=== PATIENT | female | born 1965 | race Caucasian/White ===

== ENCOUNTER 2016-04-08 19:02 | Inpatient (IN) | payer OTHER ==
[~2016-04-08] VITALS: Ht 160 cm; Wt 98.0 kg
[~2016-04-08 19:02] MED LIST: ADALAT CC60 MG PO; AMOXICILLIN PO; ASPIRIN81 M1 PO; BACTRIM DS 800/1 TAB PO; CATAPRES0.1 MG PO; CIPRO500 M1 PO; CIPRO500 MG PO; CLA PO; COZAAR50 MG PO; GLUCOPHAGE1000 MG PO; GLUCOTROL10 MG PO; HCTZ PO; HYDROCHLOROTHIA PO; LANTUS INS100 UNITS/ SUBQ; LEVAQUIN500 MG PO; LISINOPRIL/HCTZ1 TA2 PO; NIFEDIPINE60 M1 PO; NORCO 5/325 MG1 TAB PO; NORVASC5 MG PO; NOVOLIN N100 U/ML SUBQ; OMEPRAZOLE20 M3 PO; PRAVACHOL20 MG PO; PROBIOTIC FORMU1 CAP PO; ROBAXIN500 M1 PO
[2016-04-08 19:23] VITALS: BP 174/95
--- NOTE | 2016-04-08 19:33 | NUR ---
PT TAKEN TO BED 3
[2016-04-08] MEDS ORDERED: METOPROLOL 25 MG TAB PO ONE (19:40)
[2016-04-08] MEDS ORDERED: ASPIRIN 81 MG TAB.CHEW PO ONE (19:40)
[2016-04-08] MEDS ORDERED: MORPHINE SULFATE 2 MG/ML SYR IVP ONE (19:40)
[2016-04-08] MEDS ORDERED: NACL 0.9% 1,000 ML IV ONE (19:40)
[2016-04-08] MEDS ORDERED: NITROGLYCERIN 2% 1 GM PKT TP ONE (19:40)
--- NOTE | 2016-04-08 20:09 | NUR ---
Dr. Carlin evaluating patient at bedside.
--- NOTE | 2016-04-08 20:14 | NUR ---
X-Ray at bedside.
[2016-04-08] MEDS ORDERED: FUROSEMIDE 40 MG/4 ML VIAL IVP ONE (20:35)
[2016-04-08] MEDS ORDERED: SODIUM POLYSTYRENE 15 GM/60 ML UDBTL PO ONE (20:35)
[2016-04-08] MEDS ORDERED: DEXTROSE 50% 50 ML SYR IVP ONE (20:40)
[2016-04-08] MEDS ORDERED: INSULIN HUMAN REGULAR 100 UNITS/ML 10 ML VIAL IVP ONE (20:40)
[2016-04-08] MEDS ORDERED: LORazepam 2 MG/ML VIAL IVP ONE (22:50)
--- NOTE | 2016-04-08 23:20 | NUR ---
50 Y/O C/O BURNING SHARP INTERMITTENT PAIN X3 DAYS, RADIATES TO LEFT ARM W/ NUMBNESS Hx HTN DM HIGH CHOLESTEROL. O2 SAT 97%, ER MD AWARED OF IT.
--- NOTE | 2016-04-08 23:26 | NUR ---
APatient will be admitted to care of DR RODRIGUEZ. Admited to TELE 111A. Will go to room 111A. Belongings list completed. Report to CHRISTINA PENA .
[2016-04-08] MEDS ORDERED: HYDROcodone/APAP 5/325 MG 1 TAB TAB PO PRN (23:30)
[2016-04-08] MEDS ORDERED: ONDANSETRON 4 MG/2 ML VIAL IVP PRN (23:30)
[2016-04-08] MEDS ORDERED: MORPHINE SULFATE 2 MG/ML SYR IVP PRN (23:30)
[2016-04-08] MEDS ORDERED: ACETAMINOPHEN 325 MG TAB PO PRN (23:30)
--- NOTE | 2016-04-08 23:35 | NUR ---
ADMITTED 50 YEAR OLD FEMALE FROM ER. PT ARRIVED TO UNIT VIA GURNEY. INITIAL ASSESSMENT COMPLETED. PT AAOX4. PT ABLE TO AMBULATE. PT STABLE, DENIES ANY PAIN AT THIS TIME. PT'S VS STABLE, ON ROOM AIR. PT HAS IV TO RIGHT UPPER ARM G 22; ASYMPTOMATIC, PATENT AND INTACT SL. ORIENTED PT TO ROOM AND SURROUNDINGS AND USE OF CALL LIGHT. EXPLAINED PLAN OF CARE TO PT AND PT VERBALIZES UNDERSTANDING. SAFETY MEASURES IN PLACE, ALLERGY BAND ON. MRSA SENT TO LAB. ADMISSION DOCUMENTATION COMPLETES.
[2016-04-08] MEDS ORDERED: INSULIN ASPART SLIDING SCALE 100 UNITS/ML VIAL SUBQ PRN (23:50)
[2016-04-08] MEDS ORDERED: DEXTROSE 50% 50 ML SYR IVP PRN (23:50)
[2016-04-09] VITALS: BP 102/70
--- NOTE | 2016-04-09 00:30 | NUR ---
PROVIDED PT WITH SCDS; HOWEVER, PT STATED THAT SHE WILL WEAR THE SCDS IN THE MORNING BECAUSE SHE WANTS TO SLEEP. CALL LIGHT WITHIN REACH.
--- NOTE | 2016-04-09 02:45 | NUR ---
PT REQUESTED A JELLO, PT STATED THAT SHE WAS A LITTLE HUNGRY. I OFFERED A SANDWICH, BUT PT ONLY WANTED JELLO. CALL LIGHT WITHIN REACH.
[2016-04-09 04:00] VITALS: BP 111/74
--- NOTE | 2016-04-09 05:05 | NUR ---
PT SLEEPING AT THIS TIME, NO SIGNS OF DISTRESS/DISCOMFORT AT THIS TIME. WILL CONTINUE TO MONITOR PT.
--- NOTE | 2016-04-09 07:20 | NUR ---
ENDORSED PT IN STABLE CONDITION TO BECKY ALMARAZ FOR CONTINUITY OF CARE.
--- NOTE | 2016-04-09 07:20 | NUR ---
RECEIVED REPORT FROM NIGHT NURSE. PT IS AAOX4, ON ROOM AIR, IV TO RIGHT UPPER ARM 22G SALINE LOCK PATENT AND INTACT. SKIN INTACT. SCD'S IN PLACE. PT STATES NO CHEST PAIN, INITIAL ASSESSMENT COMPLETED, REVIEWED PLAN OF CARE WITH PT, PT VERBALIZED UNDERSTANDING, ORIENTED PT TO ROOM AND ENVIRONMENT. CALL LIGHT WITHIN REACH. WILL CONTINUE TO MONITOR.
[2016-04-09] MEDS: BLOOD GLUCOSE MONITORING 1 DEV DEV FS SCH ×4 (07:30→20:08)
[2016-04-09 08:00] VITALS: BP 118/53
[2016-04-09] MEDS ORDERED: metFORMIN 500 MG TAB PO SCH (09:00)
[2016-04-09] MEDS: HYDROCHLOROTHIAZIDE 25 MG TAB PO SCH (09:00)
[2016-04-09] MEDS: NIFEdipine 60 MG TABER PO SCH (09:00)
[2016-04-09] MEDS: LISINOPRIL 20 MG TAB PO SCH (09:00)
--- NOTE | 2016-04-09 09:06 | NUR ---
PATIENT HAS BEEN SCREENED AND CATEGORIZED MODERATE NUTRITION RISK. PATIENT WILL BE SEEN WITHIN 3-5 DAYS OF ADMISSION. 04/11/16-04/13/[address]
[2016-04-09] MEDS: ASPIRIN 81 MG TAB.CHEW PO SCH (09:09)
[2016-04-09] MEDS: METHOCARBAMOL 500 MG TAB PO SCH ×3 (09:09→17:00)
[2016-04-09] MEDS: PANTOPRAZOLE 40 MG TABEC PO SCH (09:09)
[2016-04-09] MEDS: glipiZIDE 10 MG TAB PO SCH ×2 (09:10→20:11)
--- NOTE | 2016-04-09 09:11 | NUR ---
DUE MEDICATIONS GIVEN, PT TOLERATED WELL. BP MEDICATIONS NOT GIVEN BP 118/53. WILL CONTINUE TO MONITOR.
--- NOTE | 2016-04-09 11:03 | NUR ---
CM NOTE INITIAL REVIEW FAXED TO [facility]NA / FAX# [phone], C: [phone]
--- NOTE | 2016-04-09 11:45 | NUR ---
CHECKED IN ON PT, PT CURRENTLY RESTING IN BED, PT STATES NO CHEST PAIN OR SOB. CALL LIGHT WITHIN REACH. WILL CONTINUE TO MONITOR.
[2016-04-09 12:00] VITALS: BP 127/68
--- NOTE | 2016-04-09 12:46 | NUR ---
PT REFUSED METHOCARBAMOL AT THIS TIME. NO S/S OF DISTRESS NOTED CALL LIGHT WITHIN REACH. WILL CONTINUE TO MONITOR.
--- NOTE | 2016-04-09 13:53 | NUR ---
CHECKED IN ON PT, PT CURRENTLY RESTING IN BED, PT STATES NO CHEST PAIN OR SOB, CALL LIGHT WITHIN REACH. WILL CONTINUE TO MONITOR
--- NOTE | 2016-04-09 14:58 | NUR ---
PAGED DR.. URIBE REGARDING K LEVEL.
[2016-04-09 16:00] VITALS: BP 113/63
[2016-04-09] MEDS ORDERED: SODIUM POLYSTYRENE 15 GM/60 ML UDBTL PO SCH (16:29)
[2016-04-09] MEDS ORDERED: BLOOD GLUCOSE MONITORING 1 DEV DEV FS SCH (16:30)
[2016-04-09] MEDS ORDERED: INSULIN ASPART SLIDING SCALE 100 UNITS/ML VIAL SUBQ PRN (16:30)
[2016-04-09] MEDS: CALCIUM ACETATE 667 MG TAB PO SCH (17:21)
[2016-04-09] MEDS: NACL 0.9% 1,000 ML IV SCH (17:22)
--- NOTE | 2016-04-09 17:30 | NUR ---
DUE MEDICATIONS GIVEN, CONNECTED PT TO IVF AT 100ML/HR, CALL LIGHT WITHIN REACH. WILL CONTINUE TO MONITOR.
--- NOTE | 2016-04-09 18:25 | NUR ---
CHECKED IN ON PT. ALL NEEDS MET CALL LIGHT WITHIN REACH. WILL CONTINUE TO MONITOR.
--- NOTE | 2016-04-09 19:10 | NUR ---
ENDORSED PLAN OF CARE TO NIGHT NURSE, PT IN STABLE CONDITION.
--- NOTE | 2016-04-09 19:11 | NUR ---
RECEIVED PT IN STABLE CONDITION FROM BECKY RODRIGEZ. NO SOB, NO SIGNS OF DISTRESS. IV SITE TO RT UPPER ARM ASYMPTOMATIC, INTACT, PATENT, IVF RUNNING. PT IS AOX4, AMBULATORY. PT DENIES PAIN AT THIS TIME. SCDS IN PLACE. VS STABLE ON ROOM AIR. SKIN INTACT. PLAN OF CARE DISCUSSED WITH PT. SAFETY MEASURES IN PLACE. CALL LIGHT WITHIN REACH. WILL CONTINUE TO MONITOR.
[2016-04-09 20:00] VITALS: BP 130/76
--- NOTE | 2016-04-09 20:10 | NUR ---
PT TOLERATED DUE MEDS WELL. NO SOB, NO SIGNS OF DISTRESS. IV SITE ASYMPTOMATIC, INTACT, IVF RUNNING. PT DENIES PAIN AT THIS TIME. PLAN OF CARE DISCUSSED WITH PT. SAFETY MEASURES IN PLACE. CLL LIGHT WITHIN REACH. WILL CONTINUE TO MONITOR.
[2016-04-09] MEDS: SACCHAROMYCES 250 MG CAP PO SCH (20:11)
[2016-04-09] MEDS ORDERED: SIMVASTATIN 10 MG TAB PO SCH (21:00)
[2016-04-10] VITALS: BP 126/70
--- NOTE | 2016-04-10 00:31 | NUR ---
VS STABLE ON ROOM AIR. NO SOB, NO SIGNS OF DISTRESS. IV SITE ASYMPTOMATIC, INTACT, IVF RUNNING. PT DENIES PAIN AT THIS TIME. PLAN OF CARE DISCUSSED WITH PT. SAFETY MEASURES IN PLACE. CLL LIGHT WITHIN REACH. WILL CONTINUE TO MONITOR.
--- NOTE | 2016-04-10 02:33 | NUR ---
PT ASLEEP IN BED. NO SOB, NO SIGNS OF DISTRESS. IV SITE ASYMPTOMATIC, INTACT, IVF RUNNING. SAFETY MEASURES IN PLACE. CALL LIGHT WITHIN REACH. WILL CONTINUE TO MONITOR.
[2016-04-10 04:00] VITALS: BP 131/73
--- NOTE | 2016-04-10 04:05 | NUR ---
SPOKE WITH MD MOLINA. MADE AWARE OF US BLE ARTERIAL RESULT OF SIGNIFICANT FLOW LIMITATION AT DISTAL RT POPLITEAL AND LT PROXIMAL POPLITEAL ARTERIES WHICH HAVE WORSENED PROGRESSIVELY SINCE LAST EXAMINATION.
[2016-04-10] MEDS: NACL 0.9% 1,000 ML IV SCH (04:19)
[2016-04-10] MEDS: BLOOD GLUCOSE MONITORING 1 DEV DEV FS SCH (06:29)
--- NOTE | 2016-04-10 07:19 | NUR ---
ENDORSED PT IN STABLE CONDITION TO BECKY RODRIGEZ. ALL NEEDS HAVE BEEN MET AT THIS TIME.
--- NOTE | 2016-04-10 07:19 | NUR ---
RECEIVED REPORT FROM NIGHT NURSE. PT IS AAOX4, ON ROOM AIR, IV TO RIGHT UPPER ARM 22G WITH NS AT 100ML/HR INFUSING WELL. SKIN INTACT. SCD'S IN PLACE. PT CURRENTLY SEATING ON CHAIR. PT STATES NO CHEST PAIN, INITIAL ASSESSMENT COMPLETED, REVIEWED PLAN OF CARE WITH PT, PT VERBALIZED UNDERSTANDING, ORIENTED PT TO ROOM AND ENVIRONMENT. CALL LIGHT WITHIN REACH. WILL CONTINUE TO MONITOR.
[2016-04-10] MEDS ORDERED: glipiZIDE 10 MG TAB PO SCH (07:25)
[2016-04-10 08:00] VITALS: BP 153/76
[2016-04-10] MEDS: PANTOPRAZOLE 40 MG TABEC PO SCH (08:36)
[2016-04-10] MEDS: HYDROCHLOROTHIAZIDE 25 MG TAB PO SCH (08:36)
[2016-04-10] MEDS: ASPIRIN 81 MG TAB.CHEW PO SCH (08:36)
[2016-04-10] MEDS: LISINOPRIL 20 MG TAB PO SCH (08:37)
[2016-04-10] MEDS: SACCHAROMYCES 250 MG CAP PO SCH (08:37)
[2016-04-10] MEDS: NIFEdipine 60 MG TABER PO SCH (08:37)
[2016-04-10] MEDS: METHOCARBAMOL 500 MG TAB PO SCH (08:37)
[2016-04-10] MEDS: CALCIUM ACETATE 667 MG TAB PO SCH (08:37)
--- NOTE | 2016-04-10 08:39 | NUR ---
DUE MEDICATIONS GIVEN, PT REFUSED METHOCARBAMOL, PT CURRENTLY EATING BREAKFAST. CALL LIGHT WITHIN REACH. WILL CONTINUE TO MONITOR.
--- NOTE | 2016-04-10 09:59 | NUR ---
FAXED CONCURRENT REVIEW TO [facility] [phone] PHONE [phone]
[2016-04-10] MEDS ORDERED: LEVAQUIN250 M1 PO (10:06)
[2016-04-10] MEDS ORDERED: FLORASTOR 33 MG1 CAP PO (10:06)
[2016-04-10] MEDS ORDERED: METRONIDAZOLE PO (10:06)
--- NOTE | 2016-04-10 10:35 | NUR ---
CHECKED IN ON PT, PT CURRENTLY RESTING IN BED NO S/S OF RESPIRATORY DISTRESS NOTED, CALL LIGHT WITHIN REACH. WILL CONTINUE TO MONITOR.
--- NOTE | 2016-04-10 11:00 | NUR ---
ALL PAPERWORK SIGNED BY PT, NEW PRESCRIPTION GIVEN, FOLLOW UP APPOINTMENT INFORMATION GIVEN TO PT, IV REMOVED TIP INTACT, ALL ARM BANDS REMOVED. DISCHARGE EDUCATION GIVEN, PT VERBALIZED UNDERSTANDING.
--- NOTE | 2016-04-10 11:30 | NUR ---
PT WAS WALKED OUT TO FRONT LOBBY IN STABLE CONDITION.
[2016-04-10] MEDS ORDERED: NORCO 325 MG-7.1 TAB PO (11:34)
[2016-04-11] MEDS ORDERED: PANTOPRAZOLE 40 MG TABEC PO SCH (06:30)
== END 2016-04-10 11:30 | disposition home or self-care (01) | DRG 243 ==
LOC: MED 19:02 → MTU 23:01
PROVIDERS: ADMIT Student in an Organized Health Care Education/Training Program; ATTEND Student in an Organized Health Care Education/Training Program
DX: K21.9 Gastro-esophageal reflux disease without esophagitis (principal); N17.0 Acute kidney failure with tubular necrosis; E44.0 Moderate protein-calorie malnutrition; E87.1 Hypo-osmolality and hyponatremia; E11.65 Type 2 diabetes mellitus with hyperglycemia; A59.9 Trichomoniasis, unspecified; E87.8 Other disorders of electrolyte and fluid balance, not elsewhere classified; N39.0 Urinary tract infection, site not specified; E83.51 Hypocalcemia; E83.39 Other disorders of phosphorus metabolism; E78.5 Hyperlipidemia, unspecified; D64.9 Anemia, unspecified; E87.5 Hyperkalemia; I10 Essential (primary) hypertension; M54.5 Low back pain; G89.29 Other chronic pain; E78.00 Pure hypercholesterolemia, unspecified; T39.395A Adverse effect of other nonsteroidal anti-inflammatory drugs [NSAID], initial encounter; Z68.38 Body mass index [BMI] 38.0-38.9, adult; Z90.710 Acquired absence of both cervix and uterus; Z79.82 Long term (current) use of aspirin; Z79.1 Long term (current) use of non-steroidal anti-inflammatories (NSAID); Z79.899 Other long term (current) drug therapy; Z88.8 Allergy status to other drugs, medicaments and biological substances; Z83.3 Family history of diabetes mellitus; Z82.49 Family history of ischemic heart disease and other diseases of the circulatory system; Y92.89 Other specified places as the place of occurrence of the external cause

== ENCOUNTER 2016-06-08 21:20 | Emergency (ER) | payer OTHER ==
[~2016-06-08] VITALS: Ht 160 cm; Wt 97.5 kg
[~2016-06-08 21:20] MED LIST changes: +ACET-2863 PO; -ADALAT CC60 MG PO; -AMOXICILLIN PO; +ASPI81CT89 PO; -ASPIRIN81 M1 PO; -BACTRIM DS 800/1 TAB PO; -CATAPRES0.1 MG PO; -CIPRO500 M1 PO; -CIPRO500 MG PO; -CLA PO; -COZAAR50 MG PO; +GLIP10TA3 PO; -GLUCOPHAGE1000 MG PO; -GLUCOTROL10 MG PO; -HCTZ PO; +HYDR-699 PO; -HYDROCHLOROTHIA PO; -LANTUS INS100 UNITS/ SUBQ; +LANTUS SUBQ; -LEVAQUIN500 MG PO; +LEVO250T2 PO; -LISINOPRIL/HCTZ1 TA2 PO; +METF1000 PO; +METH500T14 PO; +NIFE60TE8 PO; -NIFEDIPINE60 M1 PO; -NORCO 5/325 MG1 TAB PO; -NORVASC5 MG PO; -NOVOLIN N100 U/ML SUBQ; +OMEP20TC10 PO; -OMEPRAZOLE20 M3 PO; +PRAV20TA2 PO; -PRAVACHOL20 MG PO; -PROBIOTIC FORMU1 CAP PO; -ROBAXIN500 M1 PO; +SACC250C1 PO; +[UNRECOGNIZED DRUG - CODE] PO
[2016-06-08 21:28] VITALS: BP 160/102
--- NOTE | 2016-06-08 21:53 | NUR ---
PT TAKEN TO BED 7
--- NOTE | 2016-06-08 22:19 | NUR ---
Dr. Izaguirre evaluating patient at bedside.
--- NOTE | 2016-06-08 22:21 | NUR ---
PATIENT PRESENTS TO ED WITH C.O ACCIDENTAL INSULIN OD . PT STATES SHE ACCIDENLY TOOK THE INCORRECT INSULIN . DENIES N/V/D; SKIN IS PINK/WARM/DRY; AAOX4 WITH EVEN AND STEADY GAIT; LUNGS CLEAR BL; HR EVEN AND REGULAR; PT DENIES ANY FEVER, CP, SOB, OR COUGH AT THIS TIME; PATIENT STATES PAIN OF 5/10 AT THIS TIME; VSS; PATIENT POSITIONED FOR COMFORT; HOB ELEVATED; BEDRAILS UP X2; BED DOWN. ER MD MADE AWARE OF PT STATUS.
[2016-06-08 22:24] VITALS: BP 160/102
--- NOTE | 2016-06-08 22:25 | NUR ---
PER DR MOSQUEDA, Patient discharged with v/s stable. Written and verbal after care instructions given and explained. Patient verbalized understanding. Ambulatory with steady gait. All questions addressed prior to discharge. Advised to follow up with PMD. DC NOTE ONLY
== END 2016-06-08 22:25 | disposition home or self-care (01) ==
LOC: MED 21:20
DX: E11.649 Type 2 diabetes mellitus with hypoglycemia without coma (principal); I10 Essential (primary) hypertension; E78.5 Hyperlipidemia, unspecified; Z79.4 Long term (current) use of insulin
CPT/HCPCS: 81002; 81025; 82948; 99283

== ENCOUNTER 2016-07-22 14:20 | Emergency (ER) | payer OTHER ==
[~2016-07-22] VITALS: Ht 160 cm; Wt 99.0 kg
[~2016-07-22 14:20] MED LIST changes: -ACET-2863 PO; +ADALAT CC60 MG PO; +AMOXICILLIN PO; -ASPI81CT89 PO; +ASPIRIN81 M1 PO; +BACTRIM DS 800/1 TAB PO; +CATAPRES0.1 MG PO; +CIPRO500 M1 PO; +CIPRO500 MG PO; +CLA PO; +COZAAR50 MG PO; +FLORASTOR 33 MG1 CAP PO; -GLIP10TA3 PO; +GLUCOPHAGE1000 MG PO; +GLUCOTROL10 MG PO; +HCTZ PO; -HYDR-699 PO; +HYDROCHLOROTHIA PO; +LANTUS INS100 UNITS/ SUBQ; -LANTUS SUBQ; +LEVAQUIN250 M1 PO; +LEVAQUIN500 MG PO; -LEVO250T2 PO; +LISINOPRIL/HCTZ1 TA2 PO; -METF1000 PO; -METH500T14 PO; +METRONIDAZOLE PO; -NIFE60TE8 PO; +NIFEDIPINE60 M1 PO; +NORCO 325 MG-7.1 TAB PO; +NORCO 5/325 MG1 TAB PO; +NORVASC5 MG PO; +NOVOLIN N100 U/ML SUBQ; -OMEP20TC10 PO; +OMEPRAZOLE20 M3 PO; -PRAV20TA2 PO; +PRAVACHOL20 MG PO; +PROBIOTIC FORMU1 CAP PO; +ROBAXIN500 M1 PO; -SACC250C1 PO; -[UNRECOGNIZED DRUG - CODE] PO
[2016-07-22 14:32] VITALS: BP 137/76
--- NOTE | 2016-07-22 15:30 | NUR ---
TRIAGED AND SEEN BY IN TRIAGE. PATIENT LEFT WITHOUT DISCHARGE INSTRUCTIONS.ERMD AWARE
== END 2016-07-22 15:30 | disposition home or self-care (01) ==
LOC: MED 14:20
DX: Z76.0 Encounter for issue of repeat prescription (principal); R05 Cough; E11.9 Type 2 diabetes mellitus without complications; I10 Essential (primary) hypertension; Z88.1 Allergy status to other antibiotic agents

== ENCOUNTER 2016-08-28 00:15 | Emergency (ER) | payer OTHER ==
[~2016-08-28] VITALS: Ht 160 cm; Wt 99.8 kg
[~2016-08-28 00:15] MED LIST changes: +ACET-2863 PO; -ADALAT CC60 MG PO; -AMOXICILLIN PO; +ASPI81CT89 PO; -ASPIRIN81 M1 PO; -BACTRIM DS 800/1 TAB PO; -CATAPRES0.1 MG PO; -CIPRO500 M1 PO; -CIPRO500 MG PO; -CLA PO; -COZAAR50 MG PO; -FLORASTOR 33 MG1 CAP PO; +GLIP10TA3 PO; -GLUCOPHAGE1000 MG PO; -GLUCOTROL10 MG PO; -HCTZ PO; +HYDR-699 PO; -HYDROCHLOROTHIA PO; -LANTUS INS100 UNITS/ SUBQ; +LANTUS SUBQ; -LEVAQUIN250 M1 PO; -LEVAQUIN500 MG PO; +LEVO250T2 PO; -LISINOPRIL/HCTZ1 TA2 PO; +METF1000 PO; +METH500T14 PO; -METRONIDAZOLE PO; +NIFE60TE8 PO; -NIFEDIPINE60 M1 PO; -NORCO 325 MG-7.1 TAB PO; -NORCO 5/325 MG1 TAB PO; -NORVASC5 MG PO; -NOVOLIN N100 U/ML SUBQ; +OMEP20TC10 PO; -OMEPRAZOLE20 M3 PO; +PRAV20TA2 PO; -PRAVACHOL20 MG PO; -PROBIOTIC FORMU1 CAP PO; -ROBAXIN500 M1 PO; +SACC250C1 PO; +[UNRECOGNIZED DRUG - CODE] PO
[2016-08-28 00:31] VITALS: BP 120/74
--- NOTE | 2016-08-28 00:46 | NUR ---
TO ER BED 8
--- NOTE | 2016-08-28 00:52 | NUR ---
PATIENT PRESENTS TO ED WITH LOWER BACK PAIN FOR 4 DAYS, NO TRAUMA NOR INJURY PT DENIES N/V/D; SKIN IS PINK/WARM/DRY; AAOX4 WITH EVEN AND STEADY GAIT; LUNGS CLEAR BL; HR EVEN AND REGULAR; PT DENIES ANY FEVER, CP, SOB, OR COUGH AT THIS TIME; PATIENT STATES PAIN OF 7/10 AT THIS TIME; VSS; PATIENT POSITIONED FOR COMFORT; HOB ELEVATED; BEDRAILS UP X2; BED DOWN. ER MD MADE AWARE OF PT STATUS.
--- NOTE | 2016-08-28 00:59 | NUR ---
Patient being evaluated by physician at bedside.
[2016-08-28] MEDS ORDERED: MORPHINE SULFATE 10 MG/ML SYR IM ONE (01:05)
[2016-08-28 01:16] LABS: EOSINOPHILS # (AUTO) 0.4 K/uL (0-0.4)
[2016-08-28 01:17] LABS: APPEARANCE,URINE CLEAR (CLEAR); BILIRUBIN,URINE NEGATIVE (NEGATIVE); BLOOD, URINE NEGATIVE (NEGATIVE); COLOR,URINE YELLOW (YELLOW); LEUKOCYTE ESTERASE ,URINE NEGATIVE (NEGATIVE); NITRITE, URINE NEGATIVE (NEGATIVE); PROTEIN,URINE NEGATIVE (NEGATIVE); UGLUCOSE NEGATIVE (NEGATIVE); UROBILINOGEN,URINE 0.2 EU/dL (0.2 - 1)
[2016-08-28 01:23] LABS: BASOPHILS # (AUTO) 0.5 K/uL (0.00-0.22); BASOPHILS % (AUTO) 3.7 % (0.0-2.0); EOSINOPHILS % (AUTO) 3.1 % (0.0-4.0); HEMATOCRIT 34.3 % (36-48); LYMPHOCYTES # (AUTO) 4.3 K/uL (2.5-16.5); LYMPHOCYTES % (AUTO) 30.3 % (20.5-51.1); MEAN CORPUSCULAR HEMOGLOBIN 27 pg (27-31); MEAN CORPUSCULAR HGB CONC 32 g/dL (33-37); MEAN CORPUSCULAR VOLUME 85 fL (80-94); MONOCYTES % (AUTO) 6.9 % (1.7-9.3); NEUTROPHILS # (AUTO) 8.1 K/uL (1.8-7.7); PLATELET COUNT (AUTO) 364 K/uL (140-450); RED BLOOD CELL COUNT(AUTO) 4.04 MIL/uL (4.20-5.40); RED CELL DISTRIBUTION WIDTH 13.7 % (11.6-13.7); WHITE BLOOD COUNT (AUTO) 14.3 K/uL (4.8-10.8)
[2016-08-28] MEDS ORDERED: ACETAMINOPHEN EXTRA STRENGTH 500 MG TAB ONE (01:23)
[2016-08-28 01:33] LABS: ALBUMIN 3.3 g/dL (3.4-5.0); ANION GAP 13.4 (8-16); CALCIUM 8.4 mg/dL (8.5-10.1); CARBON DIOXIDE 24.5 mmol/L (21-32); CREATININE 1.4 mg/dL (0.6-1.3); POTASSIUM 4.9 mmol/L (3.5-5.1); TOTAL BILIRUBIN 0.1 mg/dL (0.0-1.0); TOTAL PROTEIN, SERUM 7.7 g/dL (6.4-8.2)
[2016-08-28 01:35] LABS: BACTERIA,URINE FEW /HPF (None Seen); RBC,URINE NONE SEEN /HPF (0-5); SQUAMOUS EPITHELIAL CELL,UR 0-3 /LPF (0-3 (FEW)); WBC,URINE NONE SEEN /HPF (0-5)
[2016-08-28] MEDS ORDERED: ACETAMINOPHEN EXTRA STRENGTH 500 MG TAB PO ONE (01:35)
[2016-08-28 01:54] VITALS: BP 120/74
--- NOTE | 2016-08-28 01:54 | NUR ---
Patient discharged with v/s stable. Written and verbal after care instructions given and explained. Patient verbalized understanding. Ambulatory with steady gait. All questions addressed prior to discharge. Advised to follow up with PMD. DISCHARGED BY DR MOSQUEDA
== END 2016-08-28 01:55 | disposition home or self-care (01) ==
LOC: MED 00:15
DX: S33.5XXA Sprain of ligaments of lumbar spine, initial encounter (principal); E11.9 Type 2 diabetes mellitus without complications; I10 Essential (primary) hypertension; Z88.8 Allergy status to other drugs, medicaments and biological substances; X58.XXXA Exposure to other specified factors, initial encounter; Y93.89 Activity, other specified; Y92.89 Other specified places as the place of occurrence of the external cause; Y99.8 Other external cause status
CPT/HCPCS: 36415; 80053; 81001; 81025; 85025; 99284; J2270

== ENCOUNTER 2016-09-27 21:44 | Inpatient (IN) | payer OTHER ==
[~2016-09-27] VITALS: Ht 160 cm; Wt 95.3 kg
[2016-09-27 22:00] VITALS: BP 127/76
--- NOTE | 2016-09-27 22:37 | NUR ---
50 Y/O F W/C/O CHEST PAIN, AND LOWER BACK PAIN X YESTERDAY. MED HX DM, HTN, AND HIGH CHOLESTEROL. PT DENIES ANY N/V/D,SOB AT THE MOMENT. PT BREATHING IS UNLABORED AND CLEAR BILAT. PT AAOX4.
[2016-09-27] MEDS ORDERED: NITROGLYCERIN 0.4 MG TAB SL ONE (23:05)
[2016-09-27] MEDS ORDERED: ASPIRIN 81 MG TAB.CHEW PO ONE (23:05)
--- NOTE | 2016-09-27 23:11 | NUR ---
X-Ray at bedside.
[2016-09-27 23:36] LABS: BASOPHILS # (AUTO) 0.4 K/uL (0.00-0.22); BASOPHILS % (AUTO) 2.7 % (0.0-2.0); EOSINOPHILS # (AUTO) 0.4 K/uL (0-0.4); EOSINOPHILS % (AUTO) 2.8 % (0.0-4.0); HEMATOCRIT 34.7 % (36-48); HEMOGLOBIN 10.9 g/dL (12.0-16.0); LYMPHOCYTES # (AUTO) 4.2 K/uL (2.5-16.5); LYMPHOCYTES % (AUTO) 31.7 % (20.5-51.1); MEAN CORPUSCULAR HEMOGLOBIN 27 pg (27-31); MEAN CORPUSCULAR HGB CONC 31 g/dL (33-37); MEAN CORPUSCULAR VOLUME 85 fL (80-94); MONOCYTES # (AUTO) 0.9 K/uL (0.8-1.0); MONOCYTES % (AUTO) 6.4 % (1.7-9.3); NEUTROPHILS # (AUTO) 7.4 K/uL (1.8-7.7); NEUTROPHILS % (AUTO) 56.4 % (42.2-75.2); PLATELET COUNT (AUTO) 364 K/uL (140-450); RED BLOOD CELL COUNT(AUTO) 4.09 MIL/uL (4.20-5.40); RED CELL DISTRIBUTION WIDTH 13.2 % (11.6-13.7); WHITE BLOOD COUNT (AUTO) 13.3 K/uL (4.8-10.8)
[2016-09-27 23:44] LABS: ANION GAP 12.8 (8-16); CALCIUM 8.9 mg/dL (8.5-10.1); CARBON DIOXIDE 23.7 mmol/L (21-32); CREATININE 1.5 mg/dL (0.6-1.3)
[2016-09-27 23:46] LABS: POTASSIUM 5.5 mmol/L (3.5-5.1)
[2016-09-27 23:50] LABS: ALBUMIN 3.2 g/dL (3.4-5.0); TOTAL BILIRUBIN 0.1 mg/dL (0.0-1.0); TOTAL PROTEIN, SERUM 7.4 g/dL (6.4-8.2)
[2016-09-27 23:51] LABS: PARTIAL THROMBOPLASTIN TIME 24.8 secs (22-35.6); PROTHROMBIN TIME 9.9 secs (10.8-13.4)
[2016-09-28] MEDS ORDERED: MORPHINE SULFATE 2 MG/ML SYR IVP PRN (01:40)
[2016-09-28] MEDS ORDERED: ONDANSETRON 4 MG/2 ML VIAL IM/IVP PRN (01:40)
[2016-09-28] MEDS ORDERED: ACETAMINOPHEN 325 MG TAB PO PRN (01:40)
[2016-09-28] MEDS ORDERED: DOCUSATE SODIUM 100 MG GELCAP PO PRN (01:40)
[2016-09-28] MEDS ORDERED: HYDROcodone/APAP 7.5/325 MG 1 TAB PO PRN (01:40)
[2016-09-28] MEDS ORDERED: ATORVASTATIN 20 MG TAB PO SCH ×2 (01:45→21:00)
[2016-09-28] MEDS ORDERED: LISINOPRIL 10 MG TAB PO SCH ×2 (01:45→09:00)
[2016-09-28] MEDS ORDERED: LABETALOL 100 MG/20 ML VIAL IVP SCH (01:45)
--- NOTE | 2016-09-28 01:50 | NUR ---
Patient will be admitted to care of DR OFWLER. Admited to TELE 105B. Will go to room 105B. Belongings list completed. Report to MIKE PENA .
[2016-09-28 02:15] VITALS: BP 133/75
--- NOTE | 2016-09-28 02:15 | NUR ---
PATIENT ARRIVED IN THE UNIT ON A GURNEY. PATIENT IS AWAKE, ALERT, AND ORIENTED. NO S/SX OF DISTRESS NOTED. PATIENT ON ROOM AIR. PATIENT DENIES PAIN AT THE MOMENT. PATIENT PLACED ON TELE MONITOR. IV LINE ON LEFT HAND INTACT, ASYMPTOMATIC. BED LOWERED AND CALL LIGHT WITHIN REACH. WILL CONTINUE TO MONITOR.
[2016-09-28] MEDS: NACL 0.9% 1,000 ML IV SCH ×3 (02:22→16:53)
--- NOTE | 2016-09-28 02:30 | NUR ---
PATIENT REFUSED TO TAKE SCHEDULED MEDICATIONS. PATIENT STATES THAT SHE TOOK HER MEDICATIONS AT HOME BEFORE COMING TO THE HOSPITAL. VITAL SIGNS WITHIN NORMAL LIMITS. DR. MARINELLI NOTIFIED.
[2016-09-28 02:42] LABS: CHOL/HDL RATIO 3.8 (1-4.5); FREE T4 (FREE THYROXINE) 0.9 ng/dL (0.76-1.46); MAGNESIUM 2.1 mg/dL (1.8-2.4); PHOSPHORUS 5.2 mg/dL (2.5-4.9); THYROID STIMULATING HORMONE 2.16 uIU/mL (0.34-3.74)
[2016-09-28] MEDS ORDERED: LABETALOL 100 MG/20 ML VIAL ONE (02:48)
[2016-09-28 04:00] VITALS: BP 112/58
--- NOTE | 2016-09-28 04:01 | NUR ---
MADE DR ISAAC AWARE OF PATIENT'S POTASSIUM LEVEL OF 5.5
--- NOTE | 2016-09-28 04:24 | NUR ---
BLOOD SUGAR CHECKED. BLOOD SUGAR 68. DR ISAAC NOTIFIED. PER GIVE PATIENT FOOD. APPLE JUICE AND JELLO GIVEN. WILL REASSESS
[2016-09-28] MEDS ORDERED: INSULIN LISPRO SLIDING SCALE 100 UNITS/ML VIAL SUBQ PRN (04:30)
[2016-09-28] MEDS ORDERED: DEXTROSE 50% 50 ML SYR IVP PRN (04:30)
--- NOTE | 2016-09-28 05:01 | NUR ---
BLOOD SUGAR 111. NO S/S OF DISTRESS NOTED
[2016-09-28] MEDS ORDERED: SODIUM POLYSTYRENE 15 GM/60 ML UDBTL PO PRN (05:40)
[2016-09-28 06:34] LABS: BASOPHILS # (AUTO) 0.4 K/uL (0.00-0.22); BASOPHILS % (AUTO) 3.6 % (0.0-2.0); EOSINOPHILS # (AUTO) 0.3 K/uL (0-0.4); EOSINOPHILS % (AUTO) 2.5 % (0.0-4.0); HEMATOCRIT 31.7 % (36-48); HEMOGLOBIN 10.2 g/dL (12.0-16.0); LYMPHOCYTES # (AUTO) 3.5 K/uL (2.5-16.5); LYMPHOCYTES % (AUTO) 31.9 % (20.5-51.1); MEAN CORPUSCULAR HEMOGLOBIN 27 pg (27-31); MEAN CORPUSCULAR HGB CONC 32 g/dL (33-37); MEAN CORPUSCULAR VOLUME 84 fL (80-94); MONOCYTES # (AUTO) 0.8 K/uL (0.8-1.0); MONOCYTES % (AUTO) 7.1 % (1.7-9.3); NEUTROPHILS # (AUTO) 6.1 K/uL (1.8-7.7); NEUTROPHILS % (AUTO) 54.9 % (42.2-75.2); PLATELET COUNT (AUTO) 323 K/uL (140-450); RED BLOOD CELL COUNT(AUTO) 3.79 MIL/uL (4.20-5.40); RED CELL DISTRIBUTION WIDTH 13.4 % (11.6-13.7); WHITE BLOOD COUNT (AUTO) 11.1 K/uL (4.8-10.8)
--- NOTE | 2016-09-28 06:45 | NUR ---
PATIENT REFUSES TO WEAR SCD. PATIENT IS AMBULATORY
[2016-09-28] MEDS: BLOOD GLUCOSE MONITORING 1 DEV DEV FS SCH ×4 (06:49→20:21)
[2016-09-28 07:02] LABS: PHOSPHORUS 4.6 mg/dL (2.5-4.9)
[2016-09-28 07:04] LABS: ANION GAP 12.4 (8-16); CALCIUM 8.5 mg/dL (8.5-10.1); CARBON DIOXIDE 21.7 mmol/L (21-32); CREATININE 1.3 mg/dL (0.6-1.3); POTASSIUM 5.1 mmol/L (3.5-5.1)
--- NOTE | 2016-09-28 07:27 | NUR ---
PATIENT REPORT GIVEN AT BEDSIDE. PATIENT ENDORSED IN STABLE CONDITION
--- NOTE | 2016-09-28 07:35 | NUR ---
REPORT RECIEVED FROM CHIEF GUARD, PT AAOX4, RESTING QUIETLY IN NAD, RESP EVEN UNLABORED, SKIN WARM DRY COLOR WNL, INITIAL ASSESSMENT DONE, POC REVIEWED, PT DENIES PAIN OR DISCOMFORT, PT DRINKING APPLE JUICE, WILL RECHECK BS, CALL BOND WITHIN REACH, BED LOCKED IN LOW POSITION, SIDE RAILS UP, WILL CONTINUE TO MONITOR.
[2016-09-28 08:00] VITALS: BP 132/71
[2016-09-28] MEDS: metFORMIN 500 MG TAB PO SCH ×2 (08:00→16:52)
--- NOTE | 2016-09-28 08:30 | NUR ---
US AT BEDSIDE
[2016-09-28] MEDS: ECOTRIN 81 MG TABEC PO SCH (08:59)
[2016-09-28] MEDS: PANTOPRAZOLE 40 MG TABEC PO SCH ×2 (08:59→20:17)
--- NOTE | 2016-09-28 09:18 | NUR ---
CM NOTE INITIAL REVIEW FAXED TO [facility] [phone] ADAN EXT [phone]
--- NOTE | 2016-09-28 09:36 | NUR ---
PT RESTING QUIETLY IN NAD, DENIES PAIN OR DISCOMFORT, NEW IV BAG HANG, IV SITE CLEAR, CALL BOND WITHIN REACH WILL CONTINUE TO MONITOR.
--- NOTE | 2016-09-28 11:13 | NUR ---
PT UP OUT OF BED WITHOUT PROBLEM, AMBULATES TO BATHROOM WITH STEADY GAIT, CLEAN CATCH URINE COLLECTED, SENT TO LAB, PT DENIES N/V, DENIES PAIN OR DISCOMFORT, REMAINS ON NUTRITION TECHNICIAN, WILL CONTINUE TO MONITOR.
[2016-09-28 12:00] VITALS: BP 128/73
[2016-09-28 12:13] LABS: AMPHETAMINE, URINE NEG. ng/ml (NEG <=1000); BARBITURATE, URINE NEG. ng/ml (NEG <=200); BENZODIAZEPINE, URINE NEG. ng/mL (NEG <=200); CANNABINOID, URINE NEG. ng/mL (NEG <=50); COCAINE, URINE NEG. ng/mL (NEG <=300); OPIATE, URINE NEG. ng/mL (NEG <=2000); PHENCYCLIDINE SCREEN,URINE NEG. ng/mL (NEG <=25)
--- NOTE | 2016-09-28 12:20 | NUR ---
DR BRIONES TO BEDSIDE FOR EVAL
[2016-09-28 13:38] LABS: APPEARANCE,URINE CLEAR (CLEAR); BILIRUBIN,URINE NEGATIVE (NEGATIVE); BLOOD, URINE NEGATIVE (NEGATIVE); COLOR,URINE YELLOW (YELLOW); LEUKOCYTE ESTERASE ,URINE TRACE (NEGATIVE); NITRITE, URINE NEGATIVE (NEGATIVE); PH,URINE 6.5 (5.0-9.0); PROTEIN,URINE NEGATIVE (NEGATIVE); UGLUCOSE NEGATIVE (NEGATIVE); UROBILINOGEN,URINE 0.2 EU/dL (0.2 - 1)
[2016-09-28 13:54] LABS: RBC,URINE 0-2 /HPF (0-5)
[2016-09-28 13:55] LABS: BACTERIA,URINE 1+ /HPF (None Seen); MUCUS,URINE 1+ /LPF (None Seen)
--- NOTE | 2016-09-28 15:26 | NUR ---
COLACE GIVEN REQUESTED BY PT, PT STATES SHE HAS NOT HAD BM IN 3DAYS, AND HAS CHRONIC ISSUES WITH CONSTIPATION, PRUNE JUICE, DR YIP NOTIFIED OF PT REQUESTS FOR SUPPOSITORY, AND MADE AWARE OF UA RESULTS.
[2016-09-28 16:00] VITALS: BP 140/74
[2016-09-28] MEDS: METHOCARBAMOL 500 MG TAB PO SCH (17:00)
[2016-09-28] MEDS ORDERED: GLYCERIN ADULT 1 SUPP RC PRN ×2 (17:00→17:31)
--- NOTE | 2016-09-28 17:57 | NUR ---
PT REFUSED ROBAXIN, PT STATES I DON'T WANT ANY MUSCLE RELAXANT RIGHT NOW, PT DENIES PAIN OR DISCOMFORT, PT GETS UP OUT OF BED WITHOUT PROBLEM, AMBULATES DOWN THE HALLWAY WITH STEADY GAIT, GLYCERIN SUPPOSITORY GIVEN AT THIS TIME, WILL CONTINUE TO MONTIOR.
--- NOTE | 2016-09-28 18:38 | NUR ---
PT REPORTS + BM AFTER SUPPOSITORY. PT DENIES CHEST PAIN OR DISCOMFORT, PT REMAINS ON ENDOSCOPE TECHNICIAN, IVF CONTINUES WITH IV SITE WNL, CALL BOND WITHIN REACH, SIDE RAILS UP, WILL CONTINUE TO MONTOR.
--- NOTE | 2016-09-28 19:19 | NUR ---
REPORT GIVEN TO CLIENT RENEWAL SPECIALIST NURSE MANDEEP, PT STABLE CONDITION.
--- NOTE | 2016-09-28 19:20 | NUR ---
RECEIVED REPORTS FROM DAY RN, PATIENT RESTING IN BED, FAMILY MEMBERS AT BEDSIDE. PATIENT AWAKE ALERT ORIENTED X4. NO S/S OF ACUTE DISTRESS NOTED, DENIES PAIN AT THIS TIME. IV PATENT AND INTACT, INFUSING NS WELL. PLAN OF CARE DISCUSSED, VERBALIZED UNDERSTANDING. CALL LIGHT WITHIN REACH, BED AT LOWEST POSITION, SIDE RAILS UP X2, WILL CONTINUE TO MONITOR.
[2016-09-28 20:00] VITALS: BP 130/68
--- NOTE | 2016-09-28 20:20 | NUR ---
PM MEDICATION GIVEN, PATIENT TOLERATED WELL.
[2016-09-28] MEDS ORDERED: SACCHAROMYCES BOULARDII PO SCH (21:00)
[2016-09-28] MEDS ORDERED: SIMVASTATIN 10 MG TAB PO SCH (21:00)
[2016-09-28] MEDS ORDERED: NON-FORMULARY ITEM (Pravastatin Sodium* (Pravachol*) 20 MG) PO SCH (21:00)
[2016-09-28] MEDS ORDERED: NON-FORMULARY ITEM (Omeprazole 20 MG) PO SCH (21:00)
--- NOTE | 2016-09-28 22:30 | NUR ---
PATIENT SLEEPING IN BED, NO S/S OF ACUTE DISTRESS NOTED, RESPIRATION EVEN AND UNLABORED. CALL LIGHT WITHIN REACH, SAFETY MEASURE ENSURED, WILL CONTINUE TO MONITOR.
[2016-09-29] VITALS: BP 131/70
--- NOTE | 2016-09-29 01:45 | NUR ---
PATIENT STATED PAIN ON HER LEGS 3/10. TYLENOL GIVEN ORDERED. NO S/S OF ACUTE DISTRESS NOTED, WILL CONTINUE TO MONITOR.
--- NOTE | 2016-09-29 03:50 | NUR ---
PATIENT SLEEPING IN BED, NO S/S OF ACUTE DISTRESS NOTED, RESPIRATION EVEN AND UNLABORED. CALL LIGHT WITHIN REACH, SAFETY MEASURE ENSURED, WILL CONTINUE TO MONITOR.
[2016-09-29 04:00] VITALS: BP 146/90
[2016-09-29] MEDS: BLOOD GLUCOSE MONITORING 1 DEV DEV FS SCH ×2 (06:50→12:23)
--- NOTE | 2016-09-29 06:52 | NUR ---
BS 102. PATIENT RESTING IN BED, NO S/S OF ACUTE DISTRESS NOTED, CALL LIGHT WITHIN REACH, SAFETY MEASURE ENSURED, WILL CONTINUE TO MONITOR.
[2016-09-29 07:14] LABS: ANION GAP 11.5 (8-16); CALCIUM 8.8 mg/dL (8.5-10.1); CARBON DIOXIDE 23.6 mmol/L (21-32); HEMATOCRIT 32.9 % (36-48); HEMOGLOBIN 10.8 g/dL (12.0-16.0); MEAN CORPUSCULAR HEMOGLOBIN 27 pg (27-31); MEAN CORPUSCULAR HGB CONC 33 g/dL (33-37); MEAN CORPUSCULAR VOLUME 83 fL (80-94); PLATELET COUNT (AUTO) 321 K/uL (140-450); POTASSIUM 5.1 mmol/L (3.5-5.1); RED BLOOD CELL COUNT(AUTO) 3.94 MIL/uL (4.20-5.40); RED CELL DISTRIBUTION WIDTH 13.3 % (11.6-13.7); WHITE BLOOD COUNT (AUTO) 9.1 K/uL (4.8-10.8)
[2016-09-29] MEDS ORDERED: glipiZIDE 10 MG TAB PO SCH (07:30)
--- NOTE | 2016-09-29 07:30 | NUR ---
REPORT RECEIVED FROM COOK HELPER FRUIT, PT RESTING QUIETLY IN NAD, RES EVEN UNLABORED SKIN WARM DRY COLOR WNL, AAOX4, PT DENIES CHEST PAIN OR SOB, SPEAKS CLEARLY, PLAN OF CARE REVIEWED, PT VERBALIZED FULL UNDERSTANDING, DENIES ANY IMMEDIATE NEEDS, CALL BOND WITHIN REACH, WILL CONTINUE TO MONITOR.
--- NOTE | 2016-09-29 07:35 | NUR ---
ENDORSED PLAN OF CARE TO DAY RN, PATIENT IS IN STABLE CONDITION. RESPIRATION EVEN AND UNLABORED, AWAKE ALERT ORIENTEDX4.
--- NOTE | 2016-09-29 07:54 | NUR ---
PATIENT HAS BEEN SCREENED AND CATEGORIZED MODERATE RISK. PATIENT WILL BE SEEN WITHIN 3-5 DAYS OF ADMISSION. 10/01/16 TO 10/03/[address]
[2016-09-29 08:00] VITALS: BP 144/89
[2016-09-29] MEDS ORDERED: metFORMIN 500 MG TAB PO SCH (08:00)
[2016-09-29] MEDS: ECOTRIN 81 MG TABEC PO SCH (08:05)
[2016-09-29] MEDS: PANTOPRAZOLE 40 MG TABEC PO SCH (08:06)
[2016-09-29 08:10] LABS: T4 (THYROXINE) 6.8 ug/dL (4.5-12.0)
[2016-09-29] MEDS: METHOCARBAMOL 500 MG TAB PO SCH (08:16)
--- NOTE | 2016-09-29 08:16 | NUR ---
DUE MEDS GIVEN AT THIS TIME EXCEPT FOR ROBAXIN, PT REFUSED ROBAXIN, PT STATES SHE NORMALLY TAKES IT AT NIGHT TIME, PT NOW EATING BREAKFAST, DENIES PAIN OR DISCOMFORT, CALL BOND WITHIN REACH, WILL CONTINUE TO MONITOR.
[2016-09-29 08:56] LABS: EOSINOPHILS % (MANUAL) 4 % (0-4); LYMPHOCYTES % (MANUAL) 33 % (20-46); MONOCYTES % (MANUAL) 8 % (5-12); NEUTROPHILS % (MANUAL) 55 (43-65)
[2016-09-29 08:57] LABS: PLATELET ESTIMATE ADEQUATE
[2016-09-29] MEDS ORDERED: LACTOBACILLUS RHAMNOSUS GG 1 EACH CAP PO SCH (09:00)
[2016-09-29] MEDS ORDERED: NIFEdipine 60 MG TABER PO SCH (09:00)
[2016-09-29] MEDS ORDERED: HYDROCHLOROTHIAZIDE 25 MG TAB PO SCH (09:00)
[2016-09-29] MEDS ORDERED: LISINOPR PO SCH (09:00)
[2016-09-29] MEDS ORDERED: ASPIRIN 81 MG TAB.CHEW PO SCH (09:00)
[2016-09-29] MEDS ORDERED: HYDROCHLOROTHIAZIDE PO SCH (09:00)
[2016-09-29] MEDS ORDERED: LISINOPRIL 20 MG TAB PO SCH (09:00)
--- NOTE | 2016-09-29 11:08 | NUR ---
PT RESTING COMFORTABLY IN NAD, RESP EVEN UNLABORED, PT DENIES ANY IMMEDIATE NEEDS, WILL CONTINUE TO MONITOR.
[2016-09-29 11:32] LABS: HEMOGLOBIN A1C 7.2 % (4.8-5.6)
[2016-09-29 12:00] VITALS: BP 133/74
--- NOTE | 2016-09-29 12:21 | NUR ---
PT C/O NAUSEA, OFFERED ZOFRAN BUT PT DECLINED, PT STATES SHE JUST WANTS "CRACKERS", VSS, DENIES PAIN OR DISCOMFORT, WILL CONTINUE TO MONITOR.
--- NOTE | 2016-09-29 12:25 | NUR ---
REPORT GIVEN TO BECKY MURILLO, PT CARE RELINQUISHED AT THIS TIME.
--- NOTE | 2016-09-29 13:21 | NUR ---
PT CLEARED FOR DISCHARGED. DISCHARGE INSTRUCTIONS PROVIDED. PT VERBALIZED UNDERSTANDING. IV TAKEN OUT TIP INTACT. PT REFUSED PNA VACCINE. EDUCATION PROVIDED. PT REFUSED DUE TO FEAR OF GETTING SICK. NO S/S OF ACUTE DISTRESS. PT DENIES PAIN. PT TAKEN TO LOBBY. PT REMAINS STABLE.
== END 2016-09-29 13:21 | disposition home or self-care (01) | DRG 243 ==
LOC: MED 21:44 → MTU 09-28 01:44
PROVIDERS: ADMIT Family Medicine; ATTEND Family Medicine
DX: K21.9 Gastro-esophageal reflux disease without esophagitis (principal); N17.0 Acute kidney failure with tubular necrosis; E11.22 Type 2 diabetes mellitus with diabetic chronic kidney disease; D68.59 Other primary thrombophilia; E11.51 Type 2 diabetes mellitus with diabetic peripheral angiopathy without gangrene; E44.0 Moderate protein-calorie malnutrition; N18.3 Chronic kidney disease, stage 3 (moderate); I25.119 Atherosclerotic heart disease of native coronary artery with unspecified angina pectoris; I12.9 Hypertensive chronic kidney disease with stage 1 through stage 4 chronic kidney disease, or unspecified chronic kidney disease; E83.39 Other disorders of phosphorus metabolism; E87.5 Hyperkalemia; E87.8 Other disorders of electrolyte and fluid balance, not elsewhere classified; E78.00 Pure hypercholesterolemia, unspecified; E66.9 Obesity, unspecified; D64.9 Anemia, unspecified; E78.5 Hyperlipidemia, unspecified; Z88.8 Allergy status to other drugs, medicaments and biological substances; Z79.2 Long term (current) use of antibiotics; Z79.899 Other long term (current) drug therapy; Z79.4 Long term (current) use of insulin; Z83.3 Family history of diabetes mellitus; Z82.49 Family history of ischemic heart disease and other diseases of the circulatory system; Z68.37 Body mass index [BMI] 37.0-37.9, adult
CPT/HCPCS: 36415; 71010; 80048; 80053; 80305; 81001; 82150; 82607; 82728; 82746; 82948; 83036; 83540; 83690; 83735; 83880; 84100; 84436; 84439; 84443; 84479; 84484; 85025; 85045; 85610; 85730; 87081; 87086; 93005; 93925; 93970; 99285; J1815; J3490; J7030; Q0092

== ENCOUNTER 2017-08-09 13:43 | Emergency (ER) | payer OTHER ==
[~2017-08-09] VITALS: Ht 160 cm; Wt 104.3 kg
[~2017-08-09 13:43] MED LIST changes: +METR250T8 PO; -[UNRECOGNIZED DRUG - CODE] PO
[2017-08-09 13:58] VITALS: BP 156/88
[2017-08-09] MEDS ORDERED: HYDROcodone/APAP 10/325 MG 1 TAB TAB PO STA (17:49)
[2017-08-09] MEDS ORDERED: CEPHALEXIN 500 MG CAP PO ONE (17:50)
[2017-08-09 18:56] VITALS: BP 115/76
== END 2017-08-09 18:56 | disposition home or self-care (01) ==
LOC: MED 13:43
DX: N39.0 Urinary tract infection, site not specified (principal); G89.29 Other chronic pain; M54.9 Dorsalgia, unspecified; F11.20 Opioid dependence, uncomplicated; E11.9 Type 2 diabetes mellitus without complications; I10 Essential (primary) hypertension; Z90.710 Acquired absence of both cervix and uterus; Z79.82 Long term (current) use of aspirin; Z79.899 Other long term (current) drug therapy; Z79.84 Long term (current) use of oral hypoglycemic drugs; Z88.8 Allergy status to other drugs, medicaments and biological substances
CPT/HCPCS: 87086; 87186; 99283; 99284

== ENCOUNTER 2017-08-23 00:20 | Emergency (ER) | payer OTHER ==
[~2017-08-23] VITALS: Ht 160 cm; Wt 106.6 kg
[2017-08-23 00:39] VITALS: BP 157/85
--- NOTE | 2017-08-23 00:42 | NUR ---
PT COMES IN TO THE ER WITH C/O OF PAIN TO THE BACK. RADIATES TO THE MIDDLE OF BACK. PT STATES THAT SHE HAS HAD A UTI 10 DAYS AGO AND WAS TREATED, SHE STILL FELT SICK AFTER AND SATURDAY WENT TO THE DOCTOR AND RECIEVED MEDICINE, BACTRIN, BUT STILL IN SEVERE PAIN. PT HAD N/V TODAY. LUNG SOUNDS CLEAR BILATERAL. FAMILY AT BEDSIDE.A/O X 4. SKIN IS PINK/WARM/DRY; EVEN AND STEADY GAIT; HR EVEN AND REGULAR; PT DENIES ANY FEVER, CP, SOB, OR COUGH AT THIS TIME; PATIENT STATES PAIN OF 7/10 AT THIS TIME; VSS; PATIENT POSITIONED FOR COMFORT; HOB ELEVATED; BEDRAILS UP X2; BED DOWN. ER MD MADE AWARE OF PT STATUS.
--- NOTE | 2017-08-23 00:42 | NUR ---
TO LOBBY A/W BED, ANUPAM EUGENE NOTED
--- NOTE | 2017-08-23 01:35 | NUR ---
DR BUCKNER AT BEDSIDE EVALUATING PT.
[2017-08-23] MEDS ORDERED: LORazepam 1 MG TAB PO ONE (02:05)
[2017-08-23] MEDS ORDERED: HYDROcodone/APAP 10/325 MG 1 TAB TAB PO STA (02:05)
--- NOTE | 2017-08-23 02:19 | NUR ---
lab at bedside
[2017-08-23 02:28] LABS: APPEARANCE,URINE CLEAR (CLEAR); BILIRUBIN,URINE NEGATIVE (NEGATIVE); BLOOD, URINE NEGATIVE (NEGATIVE); COLOR,URINE YELLOW (YELLOW); LEUKOCYTE ESTERASE ,URINE NEGATIVE (NEGATIVE); NITRITE, URINE NEGATIVE (NEGATIVE); PH,URINE 5.5 (5.0-9.0); UGLUCOSE NEGATIVE (NEGATIVE)
[2017-08-23 02:40] LABS: ANION GAP 14.6 (8-16); CARBON DIOXIDE 23.9 mmol/L (21-32)
--- NOTE | 2017-08-23 02:45 | NUR ---
pt resting in bed, family at bedside. stable
[2017-08-23 02:46] LABS: ALBUMIN 3.3 g/dL (3.4-5.0); TOTAL BILIRUBIN 0.1 mg/dL (0.0-1.0)
[2017-08-23 02:49] LABS: POTASSIUM 5.5 mmol/L (3.5-5.1)
[2017-08-23 03:22] LABS: BASOPHILS % (AUTO) 0.2 % (0.0-2.0); EOSINOPHILS # (AUTO) 0.2 K/uL (0-0.4); HEMATOCRIT 31.3 % (36-48); LYMPHOCYTES # (AUTO) 3.1 K/uL (2.5-16.5); MEAN CORPUSCULAR HEMOGLOBIN 26 pg (27-31); MEAN CORPUSCULAR HGB CONC 32 g/dL (33-37); MONOCYTES % (AUTO) 8.5 % (1.7-9.3); NEUTROPHILS # (AUTO) 7.6 K/uL (1.8-7.7); NEUTROPHILS % (AUTO) 63.3 % (42.2-75.2); PLATELET COUNT (AUTO) 343 K/uL (140-450); RED BLOOD CELL COUNT(AUTO) 3.78 MIL/uL (4.20-5.40); RED CELL DISTRIBUTION WIDTH 14.6 % (11.6-13.7)
[2017-08-23 03:40] VITALS: BP 133/74
--- NOTE | 2017-08-23 03:40 | NUR ---
Patient discharged with v/s stable. Written and verbal after care instructions given and explained. Patient alert, oriented and verbalized understanding of instructions. Ambulatory with steady gait. All questions addressed prior to discharge. ID band removed. Patient advised to follow up with PMD. Rx of norco, flexeril were given. Patient educated on indication of medication including possible reaction and side effects. Opportunity to ask questions provided and answered.
== END 2017-08-23 03:40 | disposition home or self-care (01) ==
LOC: MED 00:20
DX: M54.5 Low back pain (principal); E66.01 Morbid (severe) obesity due to excess calories; I12.9 Hypertensive chronic kidney disease with stage 1 through stage 4 chronic kidney disease, or unspecified chronic kidney disease; E11.22 Type 2 diabetes mellitus with diabetic chronic kidney disease; N18.9 Chronic kidney disease, unspecified; Z79.84 Long term (current) use of oral hypoglycemic drugs; Z79.82 Long term (current) use of aspirin; Z79.899 Other long term (current) drug therapy; Z88.8 Allergy status to other drugs, medicaments and biological substances
CPT/HCPCS: 36415; 80053; 81003; 81025; 85025; 99284

== ENCOUNTER 2017-08-25 22:59 | Emergency (ER) | payer OTHER ==
[~2017-08-25] VITALS: Ht 160 cm; Wt 106.6 kg
[2017-08-25 23:07] VITALS: BP 179/76
[2017-08-25] MEDS ORDERED: LORazepam 2 MG/ML VIAL IM ONE ×2 (23:15→23:50)
[2017-08-26 00:55] VITALS: BP 143/73
== END 2017-08-26 00:55 | disposition home or self-care (01) ==
LOC: MED 22:59
DX: R06.4 Hyperventilation (principal); F41.0 Panic disorder [episodic paroxysmal anxiety]; R94.31 Abnormal electrocardiogram [ECG] [EKG]; E78.5 Hyperlipidemia, unspecified; E11.9 Type 2 diabetes mellitus without complications; I10 Essential (primary) hypertension; Z79.899 Other long term (current) drug therapy; Z79.84 Long term (current) use of oral hypoglycemic drugs; Z88.8 Allergy status to other drugs, medicaments and biological substances
CPT/HCPCS: 93005; 96372; 99283; J2060

== ENCOUNTER 2017-11-06 00:14 | Emergency (ER) | payer OTHER ==
[~2017-11-06] VITALS: Ht 160 cm; Wt 106.2 kg
[2017-11-06 00:34] VITALS: BP 152/80
--- NOTE | 2017-11-06 00:34 | NUR ---
PT PRESENTS TO ED WITH EPIGASTRIC CHEST PAIN AND SOB X3 DAYS. PT STASTES WAKING UP FEELING BURNING IN HER CHEST WITH SOB AND WORRIED. PT VSS. LUNGS CLEAR. HEART SOUNDS EVEN AND REGULAR. LUNGS CLEAR BILAT. O2SAT 97% AT RA. POSITIONED IN BED WITH HOB ELEVATED. SIDE RAILES UP. VSS. ER MD AWARE. CONTINUE TO MONITOR.
--- NOTE | 2017-11-06 00:34 | NUR ---
TO BED # 5 AMBULATORY , REPORT GIVEN TO GRUPO PENA
[2017-11-06] MEDS ORDERED: ASPIRIN 325 MG TAB PO ONE (00:40)
[2017-11-06] MEDS ORDERED: DICYCLOMINE HCL LIQUID 20 MG, ALUMINUM HYD/MAG/SIMETHICONE 30 ML, LIDOCAINE VISCOUS 2% ... PO ONE ×3 (00:55)
[2017-11-06 01:10] LABS: BASOPHILS # (AUTO) 0.1 K/uL (0.00-0.22); BASOPHILS % (AUTO) 0.4 % (0.0-2.0); EOSINOPHILS # (AUTO) 0.3 K/uL (0-0.4); EOSINOPHILS % (AUTO) 2.4 % (0.0-4.0); HEMOGLOBIN 11.7 g/dL (12.0-16.0); LYMPHOCYTES # (AUTO) 4.7 K/uL (2.5-16.5); MEAN CORPUSCULAR HEMOGLOBIN 27 pg (27-31); MEAN CORPUSCULAR HGB CONC 32 g/dL (33-37); MEAN CORPUSCULAR VOLUME 83.6 fL (80-94); MONOCYTES % (AUTO) 7.2 % (1.7-9.3); NEUTROPHILS # (AUTO) 7.7 K/uL (1.8-7.7); PLATELET COUNT (AUTO) 338 K/uL (140-450); RED BLOOD CELL COUNT(AUTO) 4.42 MIL/uL (4.20-5.40); RED CELL DISTRIBUTION WIDTH 14.5 % (11.6-13.7); WHITE BLOOD COUNT (AUTO) 13.8 K/uL (4.8-10.8)
[2017-11-06 01:19] LABS: ANION GAP 11.7 (8-16); CARBON DIOXIDE 27.8 mmol/L (21-32); CREATININE 1.2 mg/dL (0.6-1.3); POTASSIUM 3.5 mmol/L (3.5-5.1)
[2017-11-06 01:25] LABS: ALBUMIN 3.5 g/dL (3.4-5.0); TOTAL BILIRUBIN 0.1 mg/dL (0.0-1.0)
[2017-11-06 01:39] LABS: BARBITURATE, URINE NEG. ng/ml (NEG <=200); BENZODIAZEPINE, URINE NEG. ng/mL (NEG <=200); CANNABINOID, URINE NEG. ng/mL (NEG <=50); COCAINE, URINE NEG. ng/mL (NEG <=300); OPIATE, URINE NEG. ng/mL (NEG <=2000); PHENCYCLIDINE SCREEN,URINE NEG. ng/mL (NEG <=25)
[2017-11-06 01:43] LABS: APPEARANCE,URINE CLEAR (CLEAR); BILIRUBIN,URINE NEGATIVE (NEGATIVE); BLOOD, URINE TRACE-L (NEGATIVE); COLOR,URINE YELLOW (YELLOW); LEUKOCYTE ESTERASE ,URINE NEGATIVE (NEGATIVE); NITRITE, URINE NEGATIVE (NEGATIVE); UGLUCOSE NEGATIVE (NEGATIVE)
[2017-11-06] MEDS ORDERED: MORPHINE SULFATE 4 MG/ML SYR IM ONE (01:55)
[2017-11-06 02:02] LABS: RBC,URINE 0-5 (RARE) /HPF (0-5); WBC,URINE 0-5 (RARE) /HPF (0-5)
[2017-11-06 03:32] VITALS: BP 132/76
--- NOTE | 2017-11-06 03:32 | NUR ---
Patient discharged with v/s stable. Written and verbal after care instructions given and explained. Patient alert, oriented and verbalized understanding of instructions. Ambulatory with steady gait. All questions addressed prior to discharge. ID band removed. Patient advised to follow up with PMD. Rx of Azithromycin given. Patient educated on indication of medication including possible reaction and side effects. Opportunity to ask questions provided and answered.
== END 2017-11-06 03:32 | disposition home or self-care (01) ==
LOC: MED 00:14
DX: J40 Bronchitis, not specified as acute or chronic (principal); E11.9 Type 2 diabetes mellitus without complications; I10 Essential (primary) hypertension; Z88.3 Allergy status to other anti-infective agents; Z79.4 Long term (current) use of insulin; Z79.899 Other long term (current) drug therapy; Z79.82 Long term (current) use of aspirin
CPT/HCPCS: 36415; 71045; 80053; 80305; 81001; 81025; 82948; 84484; 85025; 87086; 93005; 99285; Q0092; J2270

== ENCOUNTER 2018-03-04 00:59 | Inpatient (IN) | payer OTHER ==
[2018-03-04] VITALS (7 sets, daily range): BP systolic 120–191; BP diastolic 45–93
[~2018-03-04] VITALS: Ht 157.5 cm; Wt 104.3 kg
[~2018-03-04 00:59] MED LIST changes: -ACET-2863 PO; +HYDR-5123 PO; -METR250T8 PO; +[UNRECOGNIZED DRUG - CODE] PO
[2018-03-04] MEDS ORDERED: INSU100I7 SQ (01:20)
[2018-03-04] MEDS ORDERED: ORE25 PO (01:21)
[2018-03-04] MEDS ORDERED: CARV6.25 PO (01:21)
--- NOTE | 2018-03-04 01:27 | NUR ---
PT TAKEN TO CHAIR E
--- NOTE | 2018-03-04 01:45 | NUR ---
ASSUMED CARE OF PT AT THIS TIME. C/O SUDDEN ONSET OROSCO AND LEFT SIDED CP W/ LEFT FACIAL NUMBNESS X 1 HOUR AGO. PT STATES SYMPTOMS WOKE HER FROM HER SLEEP. PT DENIES ANY SOB. PT DENIES ANY OTHER NEURO SYMPTOMS AT THIS TIME. AAOX4 WITH EVEN AND STEADY GAIT; PATIENT STATES PAIN OF 5/10; VSS; PATIENT POSITIONED FOR COMFORT; HOB ELEVATED; BEDRAILS UP X2; BED DOWN. ER MD MADE AWARE OF PT STATUS. WILL CONTINUE TO MONITOR.
--- NOTE | 2018-03-04 01:59 | NUR ---
Dr. Foote evaluating patient at bedside.
[2018-03-04] MEDS ORDERED: METOCLOPRAMIDE 10 MG/2 ML INJ VIAL IVP ONE (02:10)
[2018-03-04] MEDS ORDERED: ACETAMINOPHEN EXTRA STRENGTH 500 MG TAB PO ONE (02:10)
[2018-03-04] MEDS ORDERED: NITROGLYCERIN 0.4 MG TAB SL ONE (02:10)
[2018-03-04 02:32] LABS: BASOPHILS % (AUTO) 0.4 % (0.0-2.0); EOSINOPHILS # (AUTO) 0.2 K/uL (0-0.4); HEMATOCRIT 36.7 % (36-48); HEMOGLOBIN 11.6 g/dL (12.0-16.0); LYMPHOCYTES # (AUTO) 4.2 K/uL (2.5-16.5); LYMPHOCYTES % (AUTO) 33.5 % (20.5-51.1); MEAN CORPUSCULAR HEMOGLOBIN 26 pg (27-31); MEAN CORPUSCULAR HGB CONC 32 g/dL (33-37); MONOCYTES % (AUTO) 8.1 % (1.7-9.3); PLATELET COUNT (AUTO) 345 K/uL (140-450); RED BLOOD CELL COUNT(AUTO) 4.47 MIL/uL (4.20-5.40); RED CELL DISTRIBUTION WIDTH 14.2 % (11.6-13.7); WHITE BLOOD COUNT (AUTO) 12.4 K/uL (4.8-10.8)
[2018-03-04 02:46] LABS: ANION GAP 13.9 (8-16); CARBON DIOXIDE 26.9 mmol/L (21-32); POTASSIUM 3.8 mmol/L (3.5-5.1)
[2018-03-04 02:52] LABS: ALBUMIN 3.4 g/dL (3.4-5.0); PROTHROMBIN TIME 9.2 secs (10.8-13.4); TOTAL BILIRUBIN 0.2 mg/dL (0.0-1.0)
--- NOTE | 2018-03-04 03:45 | NUR ---
PT RESTING COMFORTABLY. PT AWAITS ADMISSION. NAD. VSS. WILL CONTINUE TO MONITOR.
[2018-03-04] MEDS ORDERED: ASPIRIN 325 MG TAB PO ONE (03:55)
[2018-03-04] MEDS ORDERED: HYDROcodone/APAP 5/325 MG 1 TAB TAB PO PRN (04:50)
[2018-03-04] MEDS ORDERED: ZOLPIDEM 5 MG TAB PO PRN (04:50)
[2018-03-04] MEDS ORDERED: MORPHINE SULFATE 4 MG/ML SYR IVP PRN (04:50)
[2018-03-04] MEDS ORDERED: DOCUSATE SODIUM 100 MG GELCAP PO PRN (04:50)
[2018-03-04] MEDS ORDERED: LORazepam 2 MG/ML VIAL IM/IVP PRN (04:50)
[2018-03-04] MEDS ORDERED: ONDANSETRON 4 MG/2 ML VIAL IM/IVP PRN (04:50)
--- NOTE | 2018-03-04 05:00 | NUR ---
Patient will be admitted to care of [facility]. Admitted to TELE. Will go to room 108A. Belongings list completed. Report to BECKY DURAN.
[2018-03-04] MEDS ORDERED: NITROGLYCERIN 0.4 MG TAB SL PRN (05:10)
--- NOTE | 2018-03-04 05:10 | NUR ---
RECEIVED REPORT FROM MEDICAL OFFICE MANAGER FOR CONTINUITY OF CARE. PT IS A/OX4 ON ROOM AIR. PT IS ABLE TO MAKE NEEDS KNOWN, ABLE TO FOLLOW COMMANDS. PT IS BEDBOUND, AND SKIN INTACT. PT HAS A 20G IV TO LEFT HAND, ASYMPTOMATIC AND INTACT. VITAL SIGNS WITHIN NORMAL LIMITS. PT STABLE, DENIES PAIN, NO SIGNS OF DISTRESS NOTED AT THIS TIME. PT POSITIONED FOR COMFORT. BED IN LOWEST POSITION, BED ALARM ON. CALL LIGHT WITHIN REACH, WILL CONTINUE TO MONITOR.
[2018-03-04] MEDS ORDERED: DEXTROSE 50% 50 ML SYR IVP PRN (05:20)
[2018-03-04 05:21] LABS: BARBITURATE, URINE NEG. ng/ml (NEG <=200); BENZODIAZEPINE, URINE NEG. ng/mL (NEG <=200); CANNABINOID, URINE NEG. ng/mL (NEG <=50); COCAINE, URINE NEG. ng/mL (NEG <=300); OPIATE, URINE NEG. ng/mL (NEG <=2000); PHENCYCLIDINE SCREEN,URINE NEG. ng/mL (NEG <=25)
[2018-03-04 05:27] LABS: APPEARANCE,URINE CLEAR (CLEAR); BILIRUBIN,URINE NEGATIVE (NEGATIVE); BLOOD, URINE TRACE-L (NEGATIVE); COLOR,URINE YELLOW (YELLOW); LEUKOCYTE ESTERASE ,URINE NEGATIVE (NEGATIVE); NITRITE, URINE NEGATIVE (NEGATIVE); UGLUCOSE NEGATIVE (NEGATIVE)
[2018-03-04 05:28] LABS: RBC,URINE 0-5 (RARE) /HPF (0-5); WBC,URINE 0-5 (RARE) /HPF (0-5)
[2018-03-04] MEDS ORDERED: ATORVASTATIN 80 MG TAB PO SCH (05:30)
[2018-03-04] MEDS ORDERED: LISINOPRIL 5 MG TAB PO SCH ×2 (05:30→09:00)
[2018-03-04] MEDS: BLOOD GLUCOSE MONITORING 1 DEV DEV FS SCH ×4 (05:41→21:00)
[2018-03-04] MEDS: NACL 0.9% 1,000 ML IV SCH ×2 (05:42→16:57)
--- NOTE | 2018-03-04 05:42 | NUR ---
ADMINISTERED SCHEDULED MEDICATIONS, PT TOLERATED WELL.
[2018-03-04] MEDS: INSULIN LISPRO SLIDING SCALE 100 UNITS/ML VIAL SUBQ PRN (05:43)
[2018-03-04 05:47] LABS: CHOL/HDL RATIO 4.1 (1-4.5); FREE T4 (FREE THYROXINE) 1.05 ng/dL (0.76-1.46); MAGNESIUM 1.8 mg/dL (1.8-2.4); PHOSPHORUS 3.5 mg/dL (2.5-4.9); THYROID STIMULATING HORMONE 2.69 uIU/mL (0.34-3.74)
[2018-03-04] MEDS ORDERED: METOPROLOL 25 MG TAB PO SCH ×2 (06:00→09:00)
--- NOTE | 2018-03-04 07:18 | NUR ---
ENDORSED PT TO DAY SHIFT RN NOEL FOR CONTINUITY OF CARE. PT IN STABLE CONDITION.
[2018-03-04] MEDS ORDERED: glipiZIDE 10 MG TAB PO SCH (07:30)
--- NOTE | 2018-03-04 07:30 | NUR ---
PATIENT WAS AWAKE, ALERT. RESPIRATION EVEN, UNLABOR ON ROOM AIR. SKIN DRY AND WARM. IV PATENT AND INTACT. DENIED PAIN, SOB AT THIS TIME. PLAN OF CARE WAS DISCUSSED WITH PATIENT. BED AT LOW POSITION, SIDE RAILS UP. CALL LIGHT WITHIN REACH
[2018-03-04] MEDS: ASPIRIN 81 MG TAB.CHEW PO SCH (08:35)
[2018-03-04] MEDS: metFORMIN 500 MG TAB PO SCH ×2 (08:38→16:39)
[2018-03-04] MEDS: LACTOBACILLUS RHAMNOSUS GG 1 EACH CAP PO SCH (08:39)
--- NOTE | 2018-03-04 08:39 | NUR ---
PATIENT HAS BEEN SCREENED AND CATEGORIZED HIGH NUTRITION RISK. PATIENT WILL BE SEEN WITHIN 1-2 DAYS OF ADMISSION. 03/04/18-03/05/[address]
[2018-03-04] MEDS: PANTOPRAZOLE 40 MG TABEC PO SCH ×2 (08:57→16:39)
[2018-03-04] MEDS: DOCUSATE SODIUM 100 MG GELCAP PO SCH (08:57)
[2018-03-04] MEDS: METHOCARBAMOL 500 MG TAB PO SCH ×2 (09:00→12:02)
[2018-03-04] MEDS ORDERED: metFORMIN 500 MG TAB PO SCH (09:00)
[2018-03-04] MEDS ORDERED: ASPIRIN 81 MG TAB.CHEW PO SCH (09:00)
[2018-03-04] MEDS: glipiZIDE 10 MG TAB PO SCH ×2 (09:00→16:39)
[2018-03-04] MEDS: NIFEdipine 60 MG TABER PO SCH (09:00)
[2018-03-04] MEDS ORDERED: amLODIPine 5 MG TAB PO SCH (09:00)
[2018-03-04] MEDS: CARVEDILOL 6.25 MG TAB PO SCH ×2 (09:00→21:00)
[2018-03-04] MEDS ORDERED: INSULIN LANTUS 100 UNITS/ML 10 ML VIAL SUBQ SCH ×2 (09:00→21:00)
[2018-03-04] MEDS ORDERED: HYDROCHLOROTHIAZIDE 25 MG TAB PO SCH (09:00)
--- NOTE | 2018-03-04 09:00 | NUR ---
PATIENT WAS AWAKE, ALERT. RESPIRATION EVEN, UNLABOR ON ROOM AIR. NO DISTRESS NOTED AT THIS TIME. MEDS WERE GIVEN PER ORDER
--- NOTE | 2018-03-04 09:03 | NUR ---
CHART REVIEW DONE.
--- NOTE | 2018-03-04 09:30 | NUR ---
OK TO HOLD ALL BLOOD PRESSURE MEDICATIONS PER DR. MAYS
--- NOTE | 2018-03-04 11:49 | NUR ---
03/04/18 RD INITIAL ASSESSMENT COMPLETED PLEASE REFER TO NUTRITION ASSESSMENT UNDER CARE ACTIVITY FOR ESTIMATED NUTRITIONAL NEEDS. 1. CONTINUE CCHO 60 GM AND CARDIAC DIET TOLERATED 2. RD PROVIDED CONSISTENT CARBOHYDRATE AND CARDIAC NUTRITION EDUCATION. PT ACCEPTED 3. RD TO FOLLOW-UP 5-7 DAYS, LOW RISK CLARICE MOJICA RD
--- NOTE | 2018-03-04 12:00 | NUR ---
PATIENT WAS AWAKE, ALERT. RESPIRATION EVEN, UNLABOR ON ROOM AIR. DENIED PAIN, SOB AT THIS TIME. PATIENT AMBULATED TO BATHROOM, STEADY GAIT. NO DISTRESS NOTED AT THIS TIME
--- NOTE | 2018-03-04 14:25 | NUR ---
PATIENT WAS AWAKE, ALERT. RESPIRATION EVEN, UNLABOR ON ROOM AIR. NO DISTRESS NOTED AT THIS TIME. FAMILY AT BEDSIDE
--- NOTE | 2018-03-04 15:50 | NUR ---
PATIENT WAS AWAKE, ALERT. RESPIRATION EVEN, UNLABOR ON ROOM AIR. DENIED PAIN, SOB, BLURRED VISION. NO DISTRESS NOTED AT THIS TIME
--- NOTE | 2018-03-04 16:15 | NUR ---
BP WAS RECHECKED 149/65. PATIENT DENIED HEADACHE OR BLUR VISION
--- NOTE | 2018-03-04 18:22 | NUR ---
PATIENT WAS AWAKE, ALERT, EATING DINNER COMFORTABLY. RESPIRATION EVEN, UNLABOR ON ROOM AIR. NO DISTRESS NOTED. IV PATENT AND INTACT. FAMILY AT BEDSIDE. CALL LIGHT WITHIN REACH
--- NOTE | 2018-03-04 19:11 | NUR ---
ENDORSEMENT GIVEN TO CHUTE FEEDER NURSE. PATIENT IS STABLE AT THIS TIME.
--- NOTE | 2018-03-04 19:12 | NUR ---
REPORT RECEIVED FROM AM NURSE AT BEDSIDE. PT IN STABLE CONDITION. AAOX4. INTRODUCED SELF TO PT. BOARD UPDATED. NO COMPLAINTS OF CHEST PAIN. NO SOB. AFEBRILE. IV SITE L HAND 20G RUNNING NS@70ML/HR PATENT AND INTACT. SKIN WARM, DRY, AND INTACT WITH NO OPEN WOUNDS. BED LOCKED IN LOW POSITION. CALL BOND WITHIN REACH. SAFETY PRECAUTIONS IN PLACE.
--- NOTE | 2018-03-04 21:00 | NUR ---
COREG GIVEN PO. HEPARIN GIVEN SUBQ. PT TOLERATED WELL. BS 74. NO INSULIN COVERAGE NEEDED. LANTUS REFUSED BY PT. SHE SAID LAST TIME SHE TOOK LANTUS AFTER HAVING BS THIS LOW BEFORE SHE SLEPT IT DROPPED TO 40 AT [phone] AND SHE WAS SCARED.
--- NOTE | 2018-03-04 23:15 | NUR ---
PT SLEEPING BUT AROUSEABLE. VS STABLE. NO S/S OF DISTRESS NOTED. WILL CONTINUE TO MONITOR.
[2018-03-05] VITALS: BP 131/54
--- NOTE | 2018-03-05 01:15 | NUR ---
PT SLEEPING COMFORTABLY BUT AROUSEABLE. NO S/S OF DISTRESS NOTED. WILL CONTINUE TO MONITOR.
--- NOTE | 2018-03-05 03:55 | NUR ---
PT SLEEPING COMFORTABLY BUT AROUSEABLE. VS STABLE. NO S/S OF DISTRESS NOTED. RESPIRATIONS EVEN, UNLABORED, AND WNL. ALL NEEDS MET AT THIS TIME.
[2018-03-05 04:00] VITALS: BP 135/62
[2018-03-05] MEDS: NACL 0.9% 1,000 ML IV SCH (05:30)
[2018-03-05] MEDS: BLOOD GLUCOSE MONITORING 1 DEV DEV FS SCH ×4 (05:52→20:08)
--- NOTE | 2018-03-05 05:53 | NUR ---
BS 99. NO INSULIN COVERAGE NEEDED.
[2018-03-05] MEDS: PANTOPRAZOLE 40 MG TABEC PO SCH ×2 (06:30→16:57)
--- NOTE | 2018-03-05 06:30 | NUR ---
PROTONIX GIVEN PO. PT TOLERATED WELL.
[2018-03-05 06:39] LABS: BASOPHILS % (AUTO) 0.3 % (0.0-2.0); EOSINOPHILS # (AUTO) 0.2 K/uL (0-0.4); EOSINOPHILS % (AUTO) 2.1 % (0.0-4.0); HEMATOCRIT 32.2 % (36-48); HEMOGLOBIN 10.4 g/dL (12.0-16.0); LYMPHOCYTES # (AUTO) 3.7 K/uL (2.5-16.5); LYMPHOCYTES % (AUTO) 38.5 % (20.5-51.1); MEAN CORPUSCULAR HEMOGLOBIN 27 pg (27-31); MEAN CORPUSCULAR HGB CONC 32 g/dL (33-37); MEAN CORPUSCULAR VOLUME 82.3 fL (80-94); MONOCYTES # (AUTO) 0.7 K/uL (0.8-1.0); MONOCYTES % (AUTO) 7.6 % (1.7-9.3); NEUTROPHILS # (AUTO) 4.9 K/uL (1.8-7.7); NEUTROPHILS % (AUTO) 51.5 % (42.2-75.2); PLATELET COUNT (AUTO) 299 K/uL (140-450); RED BLOOD CELL COUNT(AUTO) 3.92 MIL/uL (4.20-5.40); RED CELL DISTRIBUTION WIDTH 14.6 % (11.6-13.7); WHITE BLOOD COUNT (AUTO) 9.6 K/uL (4.8-10.8)
--- NOTE | 2018-03-05 07:00 | NUR ---
REPORT GIVEN TO AM NURSE AT BEDSIDE. PT IN STABLE CONDITION.
--- NOTE | 2018-03-05 07:01 | NUR ---
RECEIVED BEDSIDE REPORT FROM RING ATTACHER NURSE. PATIENT IS AWAKE, ALERT AND ORIENTEDX4. NO SIGNS OF DISTRESS ON RA. IV ON L HAND 20G INFUSING NS AT 70. CLEAN, DRY AND INTACT. SKIN IS INTACT. PATIENT IS CONTINENT. AMBULATORY. GAIT IS STEADY. TELE MONITOR IN PLACE. BED IN LOW POSITION. CALL LIGHT WITHIN REACH. WILL CONTINUE TO MONITOR THE PATIENT
[2018-03-05 08:00] VITALS: BP 176/85
[2018-03-05] MEDS ORDERED: HYDROCHLOROTHIAZIDE 25 MG TAB PO SCH (08:00)
[2018-03-05] MEDS: LACTOBACILLUS RHAMNOSUS GG 1 EACH CAP PO SCH (08:27)
[2018-03-05] MEDS: metFORMIN 500 MG TAB PO SCH ×2 (08:27→16:57)
[2018-03-05] MEDS: ATORVASTATIN 80 MG TAB PO SCH (08:27)
[2018-03-05] MEDS: ASPIRIN 81 MG TAB.CHEW PO SCH (08:28)
[2018-03-05] MEDS: CARVEDILOL 6.25 MG TAB PO SCH ×2 (08:28→20:05)
[2018-03-05] MEDS: NIFEdipine 60 MG TABER PO SCH (08:28)
[2018-03-05] MEDS: glipiZIDE 10 MG TAB PO SCH ×2 (08:28→16:58)
[2018-03-05] MEDS: DOCUSATE SODIUM 100 MG GELCAP PO SCH (08:29)
[2018-03-05] MEDS: ACETAMINOPHEN 325 MG TAB PO PRN (08:39)
--- NOTE | 2018-03-05 08:40 | NUR ---
ADMINISTERED MEDS. PATIENT TOLERATED WELL. NO SIGNS OF DISTRESS. WILL CONTINUE TO MONITOR THE PATIENT
[2018-03-05 08:59] LABS: CREATININE 0.9 mg/dL (0.6-1.3); POTASSIUM 4.2 mmol/L (3.5-5.1)
[2018-03-05 09:18] LABS: ANION GAP 13.8 (8-16); CARBON DIOXIDE 25.4 mmol/L (21-32)
--- NOTE | 2018-03-05 10:00 | NUR ---
PATIENT WATCHING TV. NO SIGNS OF DISTRESS. WILL CONTINUE TO MONITOR THE PATIENT
[2018-03-05 12:00] VITALS: BP 155/59
--- NOTE | 2018-03-05 12:00 | NUR ---
VITALS WNL. NO SIGNS OF DISTRESS. WILL CONTINUE TO MONITOR THE PATIENT
--- NOTE | 2018-03-05 13:00 | NUR ---
GOT PATIENT A TURKEY SANDWICH. PATIENT DOES NOT LIKE LUNCH TRAY.
--- NOTE | 2018-03-05 13:53 | NUR ---
CHART REVIEW DONE.
--- NOTE | 2018-03-05 15:20 | NUR ---
PATIENT SITTING ON SIDE OF BED ON HER PHONE. NO SIGNS OF DISTRESS. WILL CONTINUE TO MONITOR THE PATIENT
[2018-03-05 16:00] VITALS: BP 163/86
[2018-03-05] MEDS: hydrALAZINE 20 MG/ML VIAL IVP PRN (16:59)
--- NOTE | 2018-03-05 17:22 | NUR ---
ADMINISTERED MEDS AND PRN HYDRALAZINE. NEW IV ON R HAND 22G INFUSING NS AT 70. WILL CONTINUE TO MONITOR THE PATIENT
[2018-03-05 18:10] VITALS: BP 150/81
--- NOTE | 2018-03-05 18:10 | NUR ---
B/P BETTER 150/81 HR 88
--- NOTE | 2018-03-05 19:19 | NUR ---
GAVE BEDSIDE REPORT TO [place] WORKER NURSE. PATIENT ENDORSED IN STABLE CONDITION
--- NOTE | 2018-03-05 19:20 | NUR ---
REPORT RECEIVED FROM AM NURSE AT BEDSIDE. PT IN STABLE CONDITION. AAOX4. INTRODUCED SELF TO PT. BOARD UPDATED. NO COMPLAINTS OF PAIN. NO SOB. AFEBRILE. COMPLAINTS OF BEING DIZZY. IV SITE R HAND 22G RUNNING NS@70ML/HR PATENT AND INTACT. SKIN WARM, DRY, AND INTACT WITH NO OPEN WOUNDS. BED LOCKED IN LOW POSITION. CALL BOND WITHIN REACH. SAFETY PRECAUTIONS IN PLACE. ALL NEEDS MET AT THIS TIME.
--- NOTE | 2018-03-05 20:05 | NUR ---
COREG AND ZESTRIL GIVEN PO. HEPARIN GIVEN SUBQ. BS 58. NO INSULIN COVERAGE NEEDED. PT GIVEN 3 JUICES, HER SNACK TRAY, AND 2 JELLOS. PT TOLERATED WELL.
[2018-03-05] MEDS ORDERED: LISINOPRIL 5 MG TAB PO SCH (21:00)
--- NOTE | 2018-03-05 22:00 | NUR ---
PT AWAKE WATCHING TV. NO S/S OF DISTRESS NOTED.
--- NOTE | 2018-03-05 23:45 | NUR ---
PT SLEEPING BUT AROUSEABLE. VS STABLE. NO S/S OF DISTRESS NOTED.
[2018-03-06] VITALS: BP 140/67
[2018-03-06] MEDS: NACL 0.9% 1,000 ML IV SCH ×2 (00:03→11:30)
--- NOTE | 2018-03-06 01:15 | NUR ---
PT SLEEPING COMFORTABLY BUT AROUSEABLE. NO S/S OF DISTRESS NOTED. ALL NEEDS MET AT THIS TIME.
--- NOTE | 2018-03-06 03:30 | NUR ---
PT SLEEPING COMFORTABLY. NO S/S OF DISTRESS. BREATHING EVEN, UNLABORED, AND WNL. ALL NEEDS MET AT THIS TIME.
[2018-03-06] MEDS: BLOOD GLUCOSE MONITORING 1 DEV DEV FS SCH ×2 (06:19→11:28)
--- NOTE | 2018-03-06 06:19 | NUR ---
BS 104. NO INSULIN COVERAGE NEEDED.
[2018-03-06] MEDS: PANTOPRAZOLE 40 MG TABEC PO SCH (06:30)
--- NOTE | 2018-03-06 06:30 | NUR ---
PROTONIX GIVEN PO. PT TOLERATED WELL.
--- NOTE | 2018-03-06 07:05 | NUR ---
REPORT GIVEN TO AM NURSE AT BEDSIDE. PT IN STABLE CONDITION.
[2018-03-06 07:12] LABS: BASOPHILS % (AUTO) 0.3 % (0.0-2.0); EOSINOPHILS # (AUTO) 0.2 K/uL (0-0.4); EOSINOPHILS % (AUTO) 1.6 % (0.0-4.0); HEMATOCRIT 34.1 % (36-48); LYMPHOCYTES # (AUTO) 3.4 K/uL (2.5-16.5); LYMPHOCYTES % (AUTO) 35.3 % (20.5-51.1); MEAN CORPUSCULAR HEMOGLOBIN 27 pg (27-31); MEAN CORPUSCULAR HGB CONC 32 g/dL (33-37); MEAN CORPUSCULAR VOLUME 82.3 fL (80-94); MONOCYTES # (AUTO) 0.6 K/uL (0.8-1.0); MONOCYTES % (AUTO) 6.5 % (1.7-9.3); NEUTROPHILS # (AUTO) 5.5 K/uL (1.8-7.7); NEUTROPHILS % (AUTO) 56.3 % (42.2-75.2); PLATELET COUNT (AUTO) 322 K/uL (140-450); RED BLOOD CELL COUNT(AUTO) 4.14 MIL/uL (4.20-5.40); RED CELL DISTRIBUTION WIDTH 14.2 % (11.6-13.7); WHITE BLOOD COUNT (AUTO) 9.7 K/uL (4.8-10.8)
--- NOTE | 2018-03-06 07:50 | NUR ---
PATIENT WAS AWAKE, ALERT, SITTING ON THE CHAIR COMFORTABLY. RESPIRATION EVEN, UNLABOR ON ROOM AIR. SKIN DRY AND WARM. IV PATENT AND INTACT. COMPLAINED OF MILD HEADACHE 3/10, WILL MEDICATE PER ORDER. PLAN OF CARE WAS DISCUSSED WITH PATIENT. BED AT LOW POSITION, SIDE RAILS UP. CALL LIGHT WITHIN REACH
[2018-03-06 08:00] VITALS: BP 183/91
[2018-03-06] MEDS ORDERED: HYDROCHLOROTHIAZIDE 25 MG TAB PO SCH (09:00)
[2018-03-06] MEDS ORDERED: LIP80 PO (09:10)
[2018-03-06] MEDS: ACETAMINOPHEN 325 MG TAB PO PRN (09:11)
[2018-03-06] MEDS: LACTOBACILLUS RHAMNOSUS GG 1 EACH CAP PO SCH (09:12)
[2018-03-06] MEDS: ATORVASTATIN 80 MG TAB PO SCH (09:13)
[2018-03-06] MEDS: glipiZIDE 10 MG TAB PO SCH (09:13)
[2018-03-06] MEDS: metFORMIN 500 MG TAB PO SCH (09:13)
[2018-03-06] MEDS: NIFEdipine 60 MG TABER PO SCH (09:14)
[2018-03-06] MEDS: ASPIRIN 81 MG TAB.CHEW PO SCH (09:15)
[2018-03-06] MEDS: CARVEDILOL 6.25 MG TAB PO SCH (09:15)
[2018-03-06] MEDS: DOCUSATE SODIUM 100 MG GELCAP PO SCH (09:15)
[2018-03-06 09:49] LABS: ANION GAP 12.1 (8-16); CARBON DIOXIDE 28.1 mmol/L (21-32); CREATININE 0.9 mg/dL (0.6-1.3); POTASSIUM 4.2 mmol/L (3.5-5.1)
[2018-03-06] MEDS ORDERED: LISI-424 PO (09:58)
--- NOTE | 2018-03-06 10:00 | NUR ---
PATIENT WAS AWAKE, ALERT, AMBULATING AROUND THE HALLWAY, STEADY GAIT. NO DISTRESS NOTED AT THIS TIME
[2018-03-06 10:55] VITALS: BP 168/74
[2018-03-06] MEDS: INSULIN LISPRO SLIDING SCALE 100 UNITS/ML VIAL SUBQ PRN (11:30)
[2018-03-06] MEDS: hydrALAZINE 20 MG/ML VIAL IVP PRN (11:57)
--- NOTE | 2018-03-06 12:00 | NUR ---
PATIENT WAS AWAKE, ALERT, SITTING ON THE CHAIR COMFORTABLY. RESPIRATION EVEN, UNLABOR ON ROOM AIR. BP WAS RECHECKED 178/88. MED WAS GIVEN PER ORDER, WILL REASSESS WITHIN 1 HOUR. PATIENT COMPLAINED OF HEAD PRESSURE, AND CHEST DISCOMFORT. DR. MAYS WAS MADE AWARE.
--- NOTE | 2018-03-06 14:00 | NUR ---
PATIENT WAS AWAKE, ALERT, SITTING ON THE CHAIR COMFORTABLY. RESPIRATION EVEN, UNLABOR ON ROOM AIR. NO DISTRESS NOTED AT THIS TIME
--- NOTE | 2018-03-06 15:30 | NUR ---
DISCHARGE INSTRUCTION AND PRESCRIPTION WERE GIVEN AND EXPLAINED TO PATIENT. PATIENT VERBALIZE UNDERSTANDING. IV WAS REMOVED, CATHETER INTACT. NO ACTIVE BLEEDING SEEN.
[2018-03-06 16:00] VITALS: BP_SYST 137; BP_SYST 138; BP_DIAS 71; BP_DIAS 77
--- NOTE | 2018-03-06 16:15 | NUR ---
PATIENT WAS ESCORTED OUT BY STAFF, AMBULATORY WITH STEADY GAIT. ALL BELONGINGS WERE TAKEN WITH THE PATIENT. ID BAND WAS REMOVED. PATIENT WAS STABLE AT THIS TIME
== END 2018-03-06 16:15 | disposition home or self-care (01) | DRG 243 ==
LOC: MED 00:59 → MTU 04:50
PROVIDERS: ADMIT General Practice; ATTEND General Practice
DX: K21.9 Gastro-esophageal reflux disease without esophagitis (principal); D68.59 Other primary thrombophilia; E11.51 Type 2 diabetes mellitus with diabetic peripheral angiopathy without gangrene; E66.01 Morbid (severe) obesity due to excess calories; E11.65 Type 2 diabetes mellitus with hyperglycemia; I16.0 Hypertensive urgency; R65.10 Systemic inflammatory response syndrome (SIRS) of non-infectious origin without acute organ dysfunction; Z68.41 Body mass index [BMI] 40.0-44.9, adult; E78.5 Hyperlipidemia, unspecified; E11.9 Type 2 diabetes mellitus without complications; I10 Essential (primary) hypertension; F41.9 Anxiety disorder, unspecified; I08.1 Rheumatic disorders of both mitral and tricuspid valves; G43.109 Migraine with aura, not intractable, without status migrainosus; F43.21 Adjustment disorder with depressed mood; F93.0 Separation anxiety disorder of childhood; Z88.8 Allergy status to other drugs, medicaments and biological substances; Z79.82 Long term (current) use of aspirin; Z79.84 Long term (current) use of oral hypoglycemic drugs; Z79.899 Other long term (current) drug therapy; Z90.710 Acquired absence of both cervix and uterus; Z83.3 Family history of diabetes mellitus; Z82.49 Family history of ischemic heart disease and other diseases of the circulatory system
CPT/HCPCS: 36415; 70450; 71045; 80048; 80053; 80305; 81001; 82150; 82948; 83036; 83690; 83735; 83880; 84100; 84439; 84443; 84484; 85025; 85610; 85730; 87081; 87086; 93005; 96374; 99291; J0360; J0696; J1644; J1815; J2765; J7030; J7060

== ENCOUNTER 2018-04-14 08:28 | Emergency (ER) | payer MEDICAID, OTHER ==
[~2018-04-14] VITALS: Ht 160 cm; Wt 104.3 kg
[~2018-04-14 08:28] MED LIST changes: +ASPI-1718 PO; -ASPI81CT89 PO; +CARV6.25 PO; -HYDR-5123 PO; -HYDR-699 PO; -LANTUS SUBQ; -LEVO250T2 PO; +LIP80 PO; +LISI-424 PO; -METH500T14 PO; +ORE25 PO; -PRAV20TA2 PO; -SACC250C1 PO; -[UNRECOGNIZED DRUG - CODE] PO
[2018-04-14 08:47] VITALS: BP 115/75
--- NOTE | 2018-04-14 08:57 | NUR ---
PT AMB TO BED 2
--- NOTE | 2018-04-14 08:57 | NUR ---
BIB SELF C/O FEVER ,COUGH , SORE THROAT & HEADACHE ,N/V X 3 DAYS. LAST BM X YESTERDAY. MED HX: HYSTERECTOMY SINECE 1989, DM, HTN & HIGH CHOLESTEROL MED: PT CAN'T REMEMBER . SKIN IS PINK/WARM/DRY; AAOX4 WITH EVEN AND STEADY GAIT; LUNGS CLEAR BL; HR EVEN AND REGULAR; PT DENIES CP, SOB, AT THIS TIME; PATIENT STATES PAIN OF 5/10 AT THIS TIME; VSS; PATIENT POSITIONED FOR COMFORT; HOB ELEVATED; BEDRAILS UP X2; BED DOWN. ER MD MADE AWARE OF PT STATUS.
[2018-04-14] MEDS ORDERED: ALBUTEROL SULFATE/IPRATROPIU 3 ML SOL IH ONE (09:05)
[2018-04-14] MEDS ORDERED: diphenhydrAMINE 50 MG/ML VIAL IM ONE (09:05)
[2018-04-14 09:35] LABS: BILIRUBIN,URINE 1+ (NEGATIVE); BLOOD, URINE 1+ (NEGATIVE); COLOR,URINE YELLOW (YELLOW); LEUKOCYTE ESTERASE ,URINE NEGATIVE (NEGATIVE); NITRITE, URINE NEGATIVE (NEGATIVE); PH,URINE 5.5 (5.0-9.0); UGLUCOSE NEGATIVE (NEGATIVE)
[2018-04-14] MEDS ORDERED: cefTRIAXone 1,000 MG in LIDOCAINE 1% ***ER ONLY *** 2.1 ML IM ONE (09:45)
[2018-04-14 09:57] LABS: APPEARANCE,URINE SLIGHTLY HAZY (CLEAR)
[2018-04-14 09:58] LABS: RBC,URINE 0-5 (RARE) /HPF (0-5); WBC,URINE 0-5 (RARE) /HPF (0-5)
[2018-04-14] MEDS ORDERED: cefTRIAXone 1,000 MG VIAL ONE (10:00)
[2018-04-14] MEDS ORDERED: LIDOCAINE MPF 1% 5mL VIAL ONE (10:06)
--- NOTE | 2018-04-14 12:22 | NUR ---
Patient discharged with v/s stable. Written and verbal after care instructions given and explained. Patient alert, oriented and verbalized understanding of instructions. Ambulatory with steady gait. All questions addressed prior to discharge. ID band removed. Patient advised to follow up with PMD. Rx of AZITHROMYCIN/PROMETHAZINE DM/ IBUPROFEN given. Patient educated on indication of medication including possible reaction and side effects. Opportunity to ask questions provided and answered.
[2018-04-14 12:23] VITALS: BP 129/69
== END 2018-04-14 12:22 | disposition home or self-care (01) ==
LOC: MED 08:28
DX: J06.9 Acute upper respiratory infection, unspecified (principal); I10 Essential (primary) hypertension; E11.9 Type 2 diabetes mellitus without complications; E78.00 Pure hypercholesterolemia, unspecified; Z88.1 Allergy status to other antibiotic agents
CPT/HCPCS: 36415; 71045; 81001; 81025; 87804; 94640; 96372; 99284; J0696; J1200; J2001; J7620

== ENCOUNTER 2018-04-21 19:11 | Emergency (ER) | payer SELFPAY ==
--- NOTE | 2018-04-21 20:00 | NUR ---
NO ANSWER FOR TRIAGE AT 1999, 2014, 2024.
== END 2018-04-21 20:00 | disposition left against medical advice (07) ==
LOC: MED 19:11
DX: Z53.21 Procedure and treatment not carried out due to patient leaving prior to being seen by health care provider (principal)

== ENCOUNTER 2018-10-15 13:07 | Emergency (ER) | payer MEDICAID ==
[~2018-10-15] VITALS: Ht 160 cm; Wt 101.2 kg
[2018-10-15 13:09] VITALS: BP 160/80
--- NOTE | 2018-10-15 13:27 | NUR ---
PT AMBULATED TO BED 9.
--- NOTE | 2018-10-15 13:30 | NUR ---
PT TO ED FOR C/O DIZZINESS X THIS MORNING WITH NAUSEA. DENIES INJURY/TRAUMA. NO OBVIOUS DISTRESS NOTED. NO NEURO DEFECITS NOTED. GCS 15. PT PLACED INTO BED PENDING MD LANDRY.
[2018-10-15] MEDS ORDERED: MECLIZINE 25 MG TAB PO ONE (13:40)
[2018-10-15] MEDS ORDERED: NACL 0.9% 1,000 ML IV ONE (13:40)
[2018-10-15 14:12] LABS: BASOPHILS % (AUTO) 0.3 % (0.0-2.0); EOSINOPHILS # (AUTO) 0.2 K/uL (0-0.4); EOSINOPHILS % (AUTO) 1.5 % (0.0-4.0); HEMATOCRIT 36.6 % (36-48); HEMOGLOBIN 11.8 g/dL (12.0-16.0); LYMPHOCYTES # (AUTO) 2.6 K/uL (2.5-16.5); LYMPHOCYTES % (AUTO) 24.1 % (20.5-51.1); MEAN CORPUSCULAR HEMOGLOBIN 27 pg (27-31); MEAN CORPUSCULAR HGB CONC 32 g/dL (33-37); MEAN CORPUSCULAR VOLUME 85.2 fL (80-94); MONOCYTES # (AUTO) 0.8 K/uL (0.8-1.0); MONOCYTES % (AUTO) 7.8 % (1.7-9.3); NEUTROPHILS % (AUTO) 66.3 % (42.2-75.2); PLATELET COUNT (AUTO) 291 K/uL (140-450); RED BLOOD CELL COUNT(AUTO) 4.29 MIL/uL (4.20-5.40); RED CELL DISTRIBUTION WIDTH 14.8 % (11.6-13.7); WHITE BLOOD COUNT (AUTO) 10.6 K/uL (4.8-10.8)
--- NOTE | 2018-10-15 14:31 | NUR ---
ASSISTED PT TO RESTROOM
[2018-10-15 14:40] LABS: ANION GAP 14.7 (8-16); CARBON DIOXIDE 25.3 mmol/L (21-32); CREATININE 1.2 mg/dL (0.6-1.3)
[2018-10-15 14:44] LABS: ALBUMIN 3.4 g/dL (3.4-5.0); TOTAL BILIRUBIN 0.2 mg/dL (0.0-1.0)
--- NOTE | 2018-10-15 15:07 | NUR ---
PT RESTING IN BED PLAYING ON PHONE, NO NEW NEEDS AT THIS TIME.
[2018-10-15 16:14] VITALS: BP 144/74
--- NOTE | 2018-10-15 16:16 | NUR ---
Patient discharged with v/s stable. Written and verbal after care instructions given and explained. Patient alert, oriented and verbalized understanding of instructions. Ambulatory with steady gait. All questions addressed prior to discharge. ID band removed. Patient advised to follow up with PMD. Rx of MECLIZINE & VALIUM given. Patient educated on indication of medication including possible reaction and side effects. Opportunity to ask questions provided and answered.
== END 2018-10-15 16:10 | disposition home or self-care (01) ==
LOC: MED 13:07
DX: R42 Dizziness and giddiness (principal); E11.9 Type 2 diabetes mellitus without complications; I10 Essential (primary) hypertension; E78.00 Pure hypercholesterolemia, unspecified; Z90.710 Acquired absence of both cervix and uterus; Z79.899 Other long term (current) drug therapy; Z88.8 Allergy status to other drugs, medicaments and biological substances
CPT/HCPCS: 36415; 80053; 82948; 85025; 96360; 99283; J7030; J8597

== ENCOUNTER 2018-12-14 11:37 | Emergency (ER) | payer MEDICAID ==
[~2018-12-14] VITALS: Ht 157.5 cm; Wt 102.1 kg
[2018-12-14 11:50] VITALS: BP 113/63
[2018-12-14] MEDS ORDERED: NACL 0.9% 1,000 ML IV ONE (12:20)
[2018-12-14 13:20] LABS: BASOPHILS % (AUTO) 0.3 % (0.0-2.0); EOSINOPHILS # (AUTO) 0.2 K/uL (0-0.4); EOSINOPHILS % (AUTO) 1.5 % (0.0-4.0); HEMATOCRIT 34.5 % (36-48); LYMPHOCYTES % (AUTO) 28.1 % (20.5-51.1); MEAN CORPUSCULAR HEMOGLOBIN 28 pg (27-31); MEAN CORPUSCULAR HGB CONC 32 g/dL (33-37); MEAN CORPUSCULAR VOLUME 86.6 fL (80-94); MONOCYTES # (AUTO) 0.8 K/uL (0.8-1.0); MONOCYTES % (AUTO) 7.6 % (1.7-9.3); NEUTROPHILS # (AUTO) 6.8 K/uL (1.8-7.7); NEUTROPHILS % (AUTO) 62.5 % (42.2-75.2); PLATELET COUNT (AUTO) 302 K/uL (140-450); RED BLOOD CELL COUNT(AUTO) 3.99 MIL/uL (4.20-5.40); RED CELL DISTRIBUTION WIDTH 15.1 % (11.6-13.7); WHITE BLOOD COUNT (AUTO) 10.8 K/uL (4.8-10.8)
[2018-12-14 13:35] LABS: ANION GAP 15.8 (8-16); CARBON DIOXIDE 21.7 mmol/L (21-32); CREATININE 1.6 mg/dL (0.6-1.3); POTASSIUM 5.5 mmol/L (3.5-5.1)
[2018-12-14 13:42] LABS: ALBUMIN 3.5 g/dL (3.4-5.0); TOTAL BILIRUBIN 0.2 mg/dL (0.0-1.0)
[2018-12-14 15:32] VITALS: BP 144/70
[2018-12-14 15:54] LABS: APPEARANCE,URINE SL CLOUDY (CLEAR); BILIRUBIN,URINE NEGATIVE (NEGATIVE); BLOOD, URINE NEGATIVE (NEGATIVE); COLOR,URINE YELLOW (YELLOW); LEUKOCYTE ESTERASE ,URINE TRACE (NEGATIVE); NITRITE, URINE NEGATIVE (NEGATIVE); PH,URINE 5.5 (5.0-9.0); UGLUCOSE NEGATIVE (NEGATIVE)
[2018-12-14 16:09] LABS: RBC,URINE NONE SEEN /HPF (0-5); WBC,URINE 20-60 /HPF (0-5)
== END 2018-12-14 15:31 | disposition home or self-care (01) ==
LOC: MED 11:37
DX: R19.7 Diarrhea, unspecified (principal); E86.0 Dehydration; N17.9 Acute kidney failure, unspecified; E11.9 Type 2 diabetes mellitus without complications; I10 Essential (primary) hypertension; Z79.84 Long term (current) use of oral hypoglycemic drugs; Z79.82 Long term (current) use of aspirin; Z79.899 Other long term (current) drug therapy; Z88.8 Allergy status to other drugs, medicaments and biological substances
CPT/HCPCS: 36415; 80053; 81001; 83690; 85025; 87086; 87186; 96360; 99283; J7030

== ENCOUNTER 2019-01-16 12:58 | Emergency (ER) | payer MEDICAID ==
[~2019-01-16] VITALS: Ht 160 cm; Wt 104.3 kg
[2019-01-16 13:16] VITALS: BP 138/69
--- NOTE | 2019-01-16 13:59 | NUR ---
PT BIB WITH C/O LOW BP. PT STATES THAT SHE CHECKED BP AT HOME WAS 80/55 AND 84/60. BP NOW IS 138/69. PT REPORTS, "I FELT LIKE I WAS DYING" DURING EPISODE OF LOW BP. PT DENIES HEADACHE, N/V, CHEST PAIN OR DIFFICULTY BREATHING AT THIS TIME. PT TOOK NIFEDIPINE 60 MG FOR HIGH BP THIS MORNING. PT ALSO REPORTS WATERY DIARRHEA X4 TODAY. NO BLOOD IN DIARRHEA. PT IS BREATHING NORMALLY WITH NO DIFFICULTY NOTED. PTS SKIN IS PINK, WARM, AND DRY. PT PRESENTS WITH A CLEAR SPEECH AND IS CONVERSING APPROPRIATELY. IS AT BEDSIDE. PT IS POSITIONED FOR COMFORT, HOB ELEVATED, BED RAIL UP X 1. ER MD AWARE OF PT STATUS. ALLERGY: NITROFURANTOIN PMH: DM, HTN, CHOLESTEROL RX: PT CANNOT RECALL MED NAMES AT THIS TIME
--- NOTE | 2019-01-16 14:11 | NUR ---
URINE COLLECTED BY LAB AT BEDSIDE.
[2019-01-16 14:20] LABS: BASOPHILS # (AUTO) 0.1 K/uL (0.00-0.22); BASOPHILS % (AUTO) 0.4 % (0.0-2.0); EOSINOPHILS # (AUTO) 0.1 K/uL (0-0.4); EOSINOPHILS % (AUTO) 0.9 % (0.0-4.0); HEMATOCRIT 34.1 % (36-48); HEMOGLOBIN 10.9 g/dL (12.0-16.0); LYMPHOCYTES # (AUTO) 2.9 K/uL (2.5-16.5); LYMPHOCYTES % (AUTO) 20.2 % (20.5-51.1); MEAN CORPUSCULAR HEMOGLOBIN 27 pg (27-31); MEAN CORPUSCULAR HGB CONC 32 g/dL (33-37); MEAN CORPUSCULAR VOLUME 86.1 fL (80-94); MONOCYTES # (AUTO) 0.7 K/uL (0.8-1.0); MONOCYTES % (AUTO) 5.2 % (1.7-9.3); NEUTROPHILS # (AUTO) 10.4 K/uL (1.8-7.7); NEUTROPHILS % (AUTO) 73.3 % (42.2-75.2); PLATELET COUNT (AUTO) 325 K/uL (140-450); RED BLOOD CELL COUNT(AUTO) 3.96 MIL/uL (4.20-5.40); RED CELL DISTRIBUTION WIDTH 14.6 % (11.6-13.7); WHITE BLOOD COUNT (AUTO) 14.1 K/uL (4.8-10.8)
[2019-01-16 14:26] LABS: APPEARANCE,URINE CLEAR (CLEAR); BILIRUBIN,URINE NEGATIVE (NEGATIVE); BLOOD, URINE NEGATIVE (NEGATIVE); COLOR,URINE YELLOW (YELLOW); LEUKOCYTE ESTERASE ,URINE NEGATIVE (NEGATIVE); NITRITE, URINE NEGATIVE (NEGATIVE); PH,URINE 5.5 (5.0-9.0); UGLUCOSE TRACE (NEGATIVE)
[2019-01-16 14:35] LABS: ANION GAP 18.7 (8-16); CARBON DIOXIDE 21.7 mmol/L (21-32); CREATININE 1.4 mg/dL (0.6-1.3); POTASSIUM 5.4 mmol/L (3.5-5.1)
[2019-01-16 14:43] LABS: ALBUMIN 3.5 g/dL (3.4-5.0); TOTAL BILIRUBIN 0.1 mg/dL (0.0-1.0)
[2019-01-16 16:29] VITALS: BP 135/60
--- NOTE | 2019-01-16 16:29 | NUR ---
Patient discharged with v/s stable. Written and verbal after care instructions given and explained. Patient verbalized understanding. Ambulatory with steady gait. All questions addressed prior to discharge. Advised to follow up with PMD.
== END 2019-01-16 16:29 | disposition home or self-care (01) ==
LOC: MED 12:58
DX: R55 Syncope and collapse (principal); E86.0 Dehydration; E11.9 Type 2 diabetes mellitus without complications; I10 Essential (primary) hypertension; Z79.899 Other long term (current) drug therapy; Z79.82 Long term (current) use of aspirin; Z88.1 Allergy status to other antibiotic agents
CPT/HCPCS: 36415; 80053; 81003; 85025; 99283

== ENCOUNTER 2019-03-12 08:49 | Emergency (ER) | payer MEDICAID ==
[~2019-03-12] VITALS: Ht 160 cm; Wt 102.1 kg
[2019-03-12 08:55] VITALS: BP 157/83
--- NOTE | 2019-03-12 09:06 | NUR ---
PT AMBULATED TO ED BED 05
--- NOTE | 2019-03-12 09:08 | NUR ---
C/O LT ELBOW AND RT KNEE JOINT PAIN X 2 WKS. RT KNEE PAIN RADIATED TO THIGH AND HIP. WAS SEEN BY PMD; PT STATED POSSIBLE ARTHRITIS, NO PRESCRIPTION. PMH;HTN, DM, HIGH CHOLESTEROL. DENIES N/V/D; SKIN IS PINK/WARM/DRY; AAOX4 .LUNGS CLEAR BL; HR EVEN AND REGULAR; PT DENIES ANY FEVER, CP, SOB, OR COUGH AT THIS TIME; PATIENT STATES PAIN OF 7/10 AT THIS TIME; VSS; PATIENT POSITIONED FOR COMFORT; HOB ELEVATED; BEDRAILS UP X2; BED DOWN. ER MD MADE AWARE OF PT STATUS.
[2019-03-12] MEDS ORDERED: KETOROLAC 30 MG/ML VIAL IM ONE (09:35)
--- NOTE | 2019-03-12 09:54 | NUR ---
X-Ray at bedside.
--- NOTE | 2019-03-12 10:00 | NUR ---
PT STATED PAIN RELIEVED AFTER TORADOL BUT STILL HURTS. HOWEVER, SHE DOES NOT NEED PAIN MEDS AT THIS MOMENT.
[2019-03-12 11:22] VITALS: BP 153/75
--- NOTE | 2019-03-12 11:22 | NUR ---
Patient discharged with v/s stable. Written and verbal after care instructions given and explained. Patient alert, oriented and verbalized understanding of instructions. Ambulatory with steady gait. All questions addressed prior to discharge. ID band removed. Patient advised to follow up with PMD. Rx of MOTRIN 600 MG, NORCO 5 given. Patient educated on indication of medication including possible reaction and side effects. Opportunity to ask questions provided and answered.
== END 2019-03-12 11:22 | disposition home or self-care (01) ==
LOC: MED 08:49
DX: M19.022 Primary osteoarthritis, left elbow (principal); M17.12 Unilateral primary osteoarthritis, left knee; E11.9 Type 2 diabetes mellitus without complications; I10 Essential (primary) hypertension; Z79.899 Other long term (current) drug therapy; Z79.84 Long term (current) use of oral hypoglycemic drugs; Z88.1 Allergy status to other antibiotic agents
CPT/HCPCS: 73080; 73562; 81025; 82948; 96372; 99283; J1885; Q0092

== ENCOUNTER 2019-04-10 07:23 | Emergency (ER) | payer MEDICAID ==
[~2019-04-10] VITALS: Ht 157.2 cm; Wt 103.9 kg
[~2019-04-10 07:23] MED LIST changes: -ASPI-1718 PO; +ASPI-1822 PO
[2019-04-10 07:27] VITALS: BP 165/86
--- NOTE | 2019-04-10 07:34 | NUR ---
PT AMBULATED TO BED 11
--- NOTE | 2019-04-10 07:41 | NUR ---
53 y/o F presents to ER c/o mid/lower back pain since Saturday morning. Pain level 8/10, sharp pressure pain. Pt took tylenol last night at 6pm without any relief. Per pt pt fell 2 weeks ago on knees. Denies LOC. Denies N/V. Pt denies any urinary symptoms at this time. Pt sitting up in bed, bed in lowest position. Allergies: Nitrofurantoin Med hx: DM, HDL, and HTN
[2019-04-10] MEDS ORDERED: HYDROcodone/APAP 5/325 MG 1 TAB TAB PO ONE (08:00)
[2019-04-10] MEDS ORDERED: DEXAMETHASONE 4 MG/ML VIAL PO ONE (08:00)
[2019-04-10] MEDS ORDERED: CYCLOBENZAPRINE 10 MG TAB PO ONE (08:00)
--- NOTE | 2019-04-10 08:33 | NUR ---
Pt reports a decrease in pain level. Current pain level 6/10.
[2019-04-10] MEDS ORDERED: NACL 0.9% 1,000 ML IV ONE (09:20)
--- NOTE | 2019-04-10 10:14 | NUR ---
Pt ambulated to restroom
--- NOTE | 2019-04-10 11:21 | NUR ---
Patient discharged with v/s stable. Written and verbal after care instructions given and explained. Patient alert, oriented and verbalized understanding of instructions. Ambulatory with steady gait. All questions addressed prior to discharge. ID band removed. Patient advised to follow up with PMD. Rx of Flexeril 5mg, [place] 5mg, and Decadron 4mg was given. Patient educated on indication of medication including possible reaction and side effects. Opportunity to ask questions provided and answered.
[2019-04-10 11:22] VITALS: BP 164/93
== END 2019-04-10 11:21 | disposition home or self-care (01) ==
LOC: MED 07:23
DX: M54.5 Low back pain (principal); E11.9 Type 2 diabetes mellitus without complications; I10 Essential (primary) hypertension; Z79.82 Long term (current) use of aspirin; Z79.84 Long term (current) use of oral hypoglycemic drugs; Z79.899 Other long term (current) drug therapy; Z88.1 Allergy status to other antibiotic agents
CPT/HCPCS: 99284; J1100; J7030

== ENCOUNTER 2019-10-03 15:10 | Emergency (ER) | payer MEDICAID ==
[~2019-10-03] VITALS: Ht 162.6 cm; Wt 104.3 kg
[~2019-10-03 15:10] MED LIST changes: +NIFE60TA39 PO; -NIFE60TE8 PO
[2019-10-03 15:14] VITALS: BP 139/79
--- NOTE | 2019-10-03 15:21 | NUR ---
Note bryan in EDM - 10/03/19 at 1648 by [email or web address] C/O LOWER BACK X YESTERDAY.TYLENOL 1000 MG AT 1 PM. BLOOD SUGAR 170 AT THIS TIME. DENIES DYSURIA. MED HX: DM, HTN,HLD,HYSTERECTOMY
--- NOTE | 2019-10-03 15:21 | NUR ---
C/O LOWER BACK PAIN X YESTERDAY.TYLENOL 1000 MG AT 1 PM. BLOOD SUGAR 170 AT THIS TIME. DENIES DYSURIA. MED HX: DM, HTN,HLD,HYSTERECTOMY
--- NOTE | 2019-10-03 15:25 | NUR ---
PT AMB TO BED 2 Addendum: 10/03/19 at 1540 by [email or web address] HANDED ON URINE CUP.
[2019-10-03] MEDS: HYDROcodone/APAP 5/325 MG 1 TAB TAB PO ONE (15:43)
--- NOTE | 2019-10-03 16:39 | NUR ---
Patient discharged with v/s stable. Written and verbal after care instructions given and explained. Patient alert, oriented and verbalized understanding of instructions. Ambulatory with steady gait. All questions addressed prior to discharge. ID band removed. Patient advised to follow up with PMD. Rx of NORCO/BACTRIM DS given. Patient educated on indication of medication including possible reaction and side effects. Opportunity to ask questions provided and answered.
[2019-10-03 16:40] VITALS: BP 139/79
== END 2019-10-03 16:39 | disposition home or self-care (01) ==
LOC: MED 15:10
DX: N39.0 Urinary tract infection, site not specified (principal); M54.5 Low back pain; E11.9 Type 2 diabetes mellitus without complications; I10 Essential (primary) hypertension; I51.89 Other ill-defined heart diseases; Z88.3 Allergy status to other anti-infective agents; Z98.890 Other specified postprocedural states; Z79.899 Other long term (current) drug therapy
CPT/HCPCS: 81002; 82948; 99283

== ENCOUNTER 2020-03-28 17:29 | Emergency (ER) | payer MEDICAID ==
[~2020-03-28] VITALS: Ht 160 cm; Wt 104.3 kg
[2020-03-28 17:44] VITALS: BP 194/96
[2020-03-28] MEDS: ASPIRIN 325 MG TAB PO ONE (18:20)
[2020-03-28 18:33] LABS: BASOPHILS # (AUTO) 0.1 K/uL (0.00-0.22); BASOPHILS % (AUTO) 0.6 % (0.0-2.0); EOSINOPHILS # (AUTO) 0.2 K/uL (0-0.4); EOSINOPHILS % (AUTO) 1.7 % (0.0-4.0); HEMATOCRIT 32.1 % (36-48); HEMOGLOBIN 10.3 g/dL (12.0-16.0); LYMPHOCYTES # (AUTO) 3.7 K/uL (2.5-16.5); LYMPHOCYTES % (AUTO) 26.9 % (20.5-51.1); MEAN CORPUSCULAR HEMOGLOBIN 27 pg (27-31); MEAN CORPUSCULAR HGB CONC 32 g/dL (33-37); MEAN CORPUSCULAR VOLUME 83.4 fL (80-94); MONOCYTES # (AUTO) 1.1 K/uL (0.8-1.0); MONOCYTES % (AUTO) 7.6 % (1.7-9.3); NEUTROPHILS # (AUTO) 8.7 K/uL (1.8-7.7); NEUTROPHILS % (AUTO) 63.2 % (42.2-75.2); PLATELET COUNT (AUTO) 365 K/uL (140-450); RED BLOOD CELL COUNT(AUTO) 3.85 MIL/uL (4.20-5.40); RED CELL DISTRIBUTION WIDTH 15.8 % (11.6-13.7); WHITE BLOOD COUNT (AUTO) 13.8 K/uL (4.8-10.8)
[2020-03-28 18:43] LABS: PROTHROMBIN TIME 9.7 secs (10.8-13.4)
[2020-03-28 18:46] LABS: ALBUMIN 3.5 g/dL (3.4-5.0); ANION GAP 13.4 (8-16); CARBON DIOXIDE 23.6 mmol/L (21-32); CREATININE 1.5 mg/dL (0.6-1.3); TOTAL BILIRUBIN 0.2 mg/dL (0.0-1.0)
--- NOTE | 2020-03-28 19:10 | NUR ---
RECEIVED REPORT FROM BECKY NORMAN FOR CONTINUATION OF CARE AT THIS TIME. PT IS SITTING IN HIGH FOWLERS POSITION. PT IS CONNECTED TO THE DIAGRAMMER AND SEAMER. SIDE RAILSX1. BED IS LOCKED AND IN LOWEST POSITION.
--- NOTE | 2020-03-28 19:11 | NUR ---
Hnd-off report given to eliz casas for continuation of nursing care
--- NOTE | 2020-03-28 19:30 | NUR ---
PT AMBULATED TO THE ED RESTROOM WITH STEADY GAIT
--- NOTE | 2020-03-28 19:40 | NUR ---
PT AMBULATED BACK TO ED ROOM 3 WITH STEADY GAIT AND RECONNECTED TO THE PHYSICS PROFESSOR.
--- NOTE | 2020-03-28 19:45 | NUR ---
PT IN SEMI FOWLERS POSITION AND CONNECTED TO THE EQUAL OPPORTUNITY SPECIALIST. PT IS NOT IN ANY ACUTE DISTRESS AT THIS TIME. SIDE RAILSX1, BED IS LOCKED AND IN LOWEST POSITION.
--- NOTE | 2020-03-28 19:45 | NUR ---
DR HAMLIN AT BEDSIDE FOR MEDICAL EVALUATION
--- NOTE | 2020-03-28 19:50 | NUR ---
CONSENT FOR CT WITH CONTRAST OBTAINED
--- NOTE | 2020-03-28 20:00 | NUR ---
20 G TO THE LEFT AC INITIATED FOR CT SCAN WITH CONTRAST
--- NOTE | 2020-03-28 20:50 | NUR ---
PT IN SEMI FOWLERS POSITION AND CONNECTED TO THE INSPECTOR PROCESS SAO2@96% RA. PT IS NOT IN ANY ACUTE DISTRESS AT THIS TIME. SIDE RAILSX1, BED IS LOCKED AND IN LOWEST POSITION.
--- NOTE | 2020-03-28 21:15 | NUR ---
PT AMBULATED TO ED RESTROOM WITH STEADY GAIT
--- NOTE | 2020-03-28 21:23 | NUR ---
PT AMBULATED BACK TO ED ROOM 3 FROM RESTROOM WITH STEADY GAIT
--- NOTE | 2020-03-28 21:55 | NUR ---
PT IN SEMI FOWLERS POSITION AND CONNECTED TO THE BILL DISTRIBUTOR SAO2@97% RA. PT IS NOT IN ANY ACUTE DISTRESS AT THIS TIME. SIDE RAILSX1, BED IS LOCKED AND IN LOWEST POSITION.
--- NOTE | 2020-03-28 22:30 | NUR ---
SPOKE WITH DAUGHTER ALEXANDRIA AND PT TO EXPLAIN REASONING FOR CT SCAN AND NEED FOR IV CONTRAST AND FLUIDS AT THIS TIME. PT VERBALIZED UNDERSTANDING
[2020-03-28] MEDS ORDERED: LACTATED RINGERS 1,000 ML IV ONE (22:40)
--- NOTE | 2020-03-28 23:00 | NUR ---
PT IN SEMI FOWLERS POSITION AND ON HER PHONE TALKING TO HER DAUGHTER ALEXANDRIA AND CONNECTED TO THE AUTOMOTIVE INTERNET SALES MANAGER SAO2@96% RA. PT IS NOT IN ANY ACUTE DISTRESS AT THIS TIME. SIDE RAILSX1, BED IS LOCKED AND IN LOWEST POSITION.
[2020-03-28] MEDS: LACTATED RINGERS 1,000 ML IV ONE (23:08)
--- NOTE | 2020-03-28 23:30 | NUR ---
pt ambulated to ed restroom with steady gait
--- NOTE | 2020-03-28 23:40 | NUR ---
pt ambulated back to ed room 3 with steady gait
--- NOTE | 2020-03-28 23:55 | NUR ---
pt repositioned for fluids to continue running
--- NOTE | 2020-03-29 | NUR ---
PT IN SEMI FOWLERS POSITION AND CONNECTED TO THE GAS WELL PUMPER SAO2@96% RA. PT IS NOT IN ANY ACUTE DISTRESS AT THIS TIME. SIDE RAILSX1, BED IS LOCKED AND IN LOWEST POSITION.
[2020-03-29 00:40] VITALS: BP 145/71
== END 2020-03-29 00:40 | disposition home or self-care (01) ==
LOC: MED 17:29
DX: R07.9 Chest pain, unspecified (principal); F41.9 Anxiety disorder, unspecified; N28.9 Disorder of kidney and ureter, unspecified; I11.9 Hypertensive heart disease without heart failure; E11.9 Type 2 diabetes mellitus without complications; E78.00 Pure hypercholesterolemia, unspecified; Z88.8 Allergy status to other drugs, medicaments and biological substances; Z79.899 Other long term (current) drug therapy
CPT/HCPCS: 36415; 71045; 71275; 80053; 83880; 84484; 85025; 85379; 85610; 85730; 93005; 96360; 99285; J7120; Q9967

== ENCOUNTER 2020-12-08 10:24 | Emergency (ER) | payer MEDICAID ==
[~2020-12-08] VITALS: Ht 160 cm; Wt 102.1 kg
[~2020-12-08 10:24] MED LIST changes: +HYDR-4004 PO; -LISI-424 PO; +LISI-648 PO; -ORE25 PO
[2020-12-08 10:35] VITALS: BP 187/102
--- NOTE | 2020-12-08 10:44 | NUR ---
55YO F C/O LOW BACK PAIN X 1 WEEK. PT SOUGHT CONSULT WITH AND WAS DIAGNOSED WITH UTI. STARTED ON SULFAMETHAZOLE, CURRENTLY ON DAY 4 ABX. PT ADMITS TO DYSURIA BUT DENIES HEMATUREIA. DENIES FEVER/CHILLS. IN ED, PT AMBULATORY. BP 187/102. PT TOOK HTN MEDICATIONS A FEW MINS AGO. 5/5 STRENGTH ON ALL EXTREMITIES. 2 SIDERAILS UP. ERMD MADE AWARE OF PT STATUS. PMH: DM, HTN, HLD MEDS: SEE LIST ALLERGY: NITROFURANTOIN
[2020-12-08] MEDS ORDERED: KETOROLAC 30 MG/ML VIAL IM ONE (12:00)
--- NOTE | 2020-12-08 12:27 | NUR ---
URINE SAMPLE WALKED TO LAB
[2020-12-08 12:43] LABS: APPEARANCE,URINE CLEAR (CLEAR); BILIRUBIN,URINE NEGATIVE (NEGATIVE); BLOOD, URINE NEGATIVE (NEGATIVE); COLOR,URINE YELLOW (YELLOW); LEUKOCYTE ESTERASE ,URINE NEGATIVE (NEGATIVE); NITRITE, URINE NEGATIVE (NEGATIVE); PH,URINE 6.5 (5.0-9.0); UGLUCOSE NEGATIVE (NEGATIVE)
[2020-12-08] MEDS ORDERED: ACET-8386 PO (13:55)
[2020-12-08] MEDS ORDERED: PRED20TA5 PO (13:55)
[2020-12-08] MEDS ORDERED: IBUP-2213 PO (13:55)
[2020-12-08] MEDS ORDERED: LID5T TP (13:55)
[2020-12-08 14:05] VITALS: BP 187/102
--- NOTE | 2020-12-08 14:05 | NUR ---
Patient discharged with v/s stable. Written and verbal after care instructions given and explained. Patient alert, oriented and verbalized understanding of instructions. Ambulatory with steady gait. All questions addressed prior to discharge. ID band removed. Patient advised to follow up with PMD. Rx of HYDROCODONE/ACETAMINOPHEN, IBUPROFEN, LIDOCAINE HYD, PREDNISONE given. Patient educated on indication of medication including possible reaction and side effects. Opportunity to ask questions provided and answered.
== END 2020-12-08 14:05 | disposition home or self-care (01) ==
LOC: MED 10:24
DX: M54.16 Radiculopathy, lumbar region (principal); E11.9 Type 2 diabetes mellitus without complications; K21.9 Gastro-esophageal reflux disease without esophagitis; I10 Essential (primary) hypertension; E78.5 Hyperlipidemia, unspecified; Z79.84 Long term (current) use of oral hypoglycemic drugs; Z79.899 Other long term (current) drug therapy; Z79.82 Long term (current) use of aspirin; Z88.8 Allergy status to other drugs, medicaments and biological substances
CPT/HCPCS: 81003; 96372; 99283; J1885

== ENCOUNTER 2020-12-08 22:56 | Emergency (ER) | payer MEDICAID ==
[~2020-12-08] VITALS: Ht 160 cm; Wt 102.1 kg
[~2020-12-08 22:56] MED LIST changes: +ACET-8386 PO; +IBUP-2213 PO; +LID5T TP; +PRED20TA5 PO
[2020-12-08 23:25] VITALS: BP 162/73
--- NOTE | 2020-12-08 23:28 | NUR ---
TO LOBBY A/W BED AMBULATORY
--- NOTE | 2020-12-09 03:51 | NUR ---
PATIENT LEFT WITHOUT BEING SEEN BY DR. DOMINGEUZ. NO FURTHER CARE PROVIDED FOR PATIENT.
== END 2020-12-09 03:51 | disposition left against medical advice (07) ==
LOC: MED 22:56
DX: T78.40XA Allergy, unspecified, initial encounter (principal); Z53.21 Procedure and treatment not carried out due to patient leaving prior to being seen by health care provider; X58.XXXA Exposure to other specified factors, initial encounter

== ENCOUNTER 2021-10-10 20:02 | Emergency (ER) | payer MEDICAID ==
[~2021-10-10] VITALS: Ht 160 cm; Wt 103.4 kg
[~2021-10-10 20:02] MED LIST changes: -LISI-648 PO; +LISI5TAB24 PO; +METF-1274 PO; -METF1000 PO; +OMEP-303 PO; -OMEP20TC10 PO
[2021-10-10 20:20] VITALS: BP 170/90
--- NOTE | 2021-10-10 20:23 | NUR ---
TO LOBBY A/W BED AMBULATORY
--- NOTE | 2021-10-10 20:54 | NUR ---
PT AMBULATED TO BED #8
--- NOTE | 2021-10-10 21:17 | NUR ---
Patient being evaluated by physician at bedside.
[2021-10-10 21:43] LABS: APPEARANCE,URINE CLEAR (CLEAR); BILIRUBIN,URINE NEGATIVE (NEGATIVE); BLOOD, URINE NEGATIVE (NEGATIVE); COLOR,URINE YELLOW (YELLOW); LEUKOCYTE ESTERASE ,URINE NEGATIVE (NEGATIVE); NITRITE, URINE NEGATIVE (NEGATIVE); PH,URINE 5.5 (5.0-9.0); UGLUCOSE NEGATIVE (NEGATIVE)
[2021-10-10 21:56] VITALS: BP 169/71
--- NOTE | 2021-10-10 21:56 | NUR ---
55YR OLD FEMALE BIB SELF C/O LOW BACK PAIN LOWER ABD DISCOMFORT. PAIN LEVEL 8/10. PT STATES SHE IS CURRENTLY BEING TREATED FOR A UTI SX X 20 DAYS. LOWER BACK PAIN WITH LOWER ABD PAIN DISCOMFORT. URGENCY /FREQ WITH URINATION. PT IS A&OX4 RESP EVEN AND UNLABORED. PT IN GOWN SIDE RAILS UP X1 BED AT LOWEST POSITION. NITROFURANTOIN DM HTN
--- NOTE | 2021-10-10 22:12 | NUR ---
PT RETURN FROM CT
--- NOTE | 2021-10-10 22:18 | NUR ---
LABS COLLECTED AND SENT
[2021-10-10] MEDS: KETOROLAC 30 MG/ML VIAL IM ONE (22:23)
[2021-10-10 22:24] LABS: BASOPHILS % (AUTO) 0.2 % (0.0-2.0); EOSINOPHILS # (AUTO) 0.2 K/uL (0-0.4); EOSINOPHILS % (AUTO) 1.5 % (0.0-4.0); HEMATOCRIT 35.8 % (36-48); HEMOGLOBIN 11.6 g/dL (12.0-16.0); LYMPHOCYTES # (AUTO) 3.6 K/uL (2.5-16.5); LYMPHOCYTES % (AUTO) 31.8 % (20.5-51.1); MEAN CORPUSCULAR HEMOGLOBIN 29 pg (27-31); MEAN CORPUSCULAR HGB CONC 32 g/dL (33-37); MONOCYTES # (AUTO) 0.9 K/uL (0.8-1.0); NEUTROPHILS # (AUTO) 6.6 K/uL (1.8-7.7); NEUTROPHILS % (AUTO) 58.5 % (42.2-75.2); PLATELET COUNT (AUTO) 293 K/uL (140-450); RED BLOOD CELL COUNT(AUTO) 4.02 MIL/uL (4.20-5.40); RED CELL DISTRIBUTION WIDTH 14.1 % (11.6-13.7); WHITE BLOOD COUNT (AUTO) 11.2 K/uL (4.8-10.8)
[2021-10-10 22:37] LABS: ALBUMIN 3.5 g/dL (3.4-5.0); ANION GAP 12.9 (8-16); CARBON DIOXIDE 24.1 mmol/L (21-32); CREATININE 1.2 mg/dL (0.6-1.3); TOTAL BILIRUBIN 0.2 mg/dL (0.0-1.0)
--- NOTE | 2021-10-10 23:56 | NUR ---
PT RESTING 5/10 PAIN LEVEL. RESP EVEN AND UNLABORED. SIDE RAILS UP X1
--- NOTE | 2021-10-11 00:05 | NUR ---
PENDING CT ABD REPORT .
[2021-10-11] MEDS ORDERED: NAPR-54 PO (00:54)
--- NOTE | 2021-10-11 01:00 | NUR ---
Patient discharged with v/s stable. Written and verbal after care instructions given and explained BY . Patient alert, oriented and verbalized understanding of instructions. Ambulatory with steady gait. All questions addressed prior to discharge. ID band removed. Patient advised to follow up with PMD. Rx of NAPROXEN given. Patient educated on indication of medication including possible reaction and side effects. Opportunity to ask questions provided and answered.
--- NOTE | 2021-10-11 01:02 | NUR ---
The patient's care was reviewed and supervised by Joyce Plasencia RN.
== END 2021-10-11 01:00 | disposition home or self-care (01) ==
LOC: MED 20:02
DX: M54.50 Low back pain, unspecified (principal); R19.7 Diarrhea, unspecified; E11.9 Type 2 diabetes mellitus without complications; E78.5 Hyperlipidemia, unspecified
CPT/HCPCS: 36415; 74176; 80053; 81003; 81025; 85025; 96372; 99284; J1885

== ENCOUNTER 2022-01-22 09:12 | Emergency (ER) | payer MEDICAID ==
[~2022-01-22] VITALS: Ht 160 cm; Wt 102.1 kg
[~2022-01-22 09:12] MED LIST changes: +NAPR-54 PO
[2022-01-22] MEDS ORDERED: IBUP-2213 PO (11:50)
[2022-01-22] MEDS ORDERED: PROM118S5 PO (11:50)
[2022-01-22] MEDS ORDERED: BENZ-300 PO (11:50)
--- NOTE | 2022-01-22 12:06 | NUR ---
56 y/o female, c/o cough, chills, subjective fever, body aches for 4 days. pt states she has been having loss of voice, was referred to ed by her pcp. denies n/v/d, sob, cp, sick contacts, dysuria, hematuria. a&ox4, ambulates with steady gait. skin pink/warm/dry. pmh: cardiac hx, dm2, gerd, htn allergy: nitrofurantoin
--- NOTE | 2022-01-22 12:16 | NUR ---
Patient discharged, written and verbal after care instructions printed, pt not in lobby or outside. left without dx paper.
== END 2022-01-22 12:16 | disposition home or self-care (01) ==
LOC: MED 09:12
DX: J06.9 Acute upper respiratory infection, unspecified (principal); Z20.822 Contact with and (suspected) exposure to COVID-19; E11.9 Type 2 diabetes mellitus without complications; I25.10 Atherosclerotic heart disease of native coronary artery without angina pectoris; K21.9 Gastro-esophageal reflux disease without esophagitis; Z79.4 Long term (current) use of insulin; Z79.899 Other long term (current) drug therapy
CPT/HCPCS: 99283

== ENCOUNTER 2022-02-11 00:07 | Emergency (ER) | payer MEDICAID ==
[~2022-02-11] VITALS: Ht 160 cm; Wt 104.3 kg
[~2022-02-11 00:07] MED LIST changes: -ACET-8386 PO; +ACET-8905 PO; +BENZ-300 PO; +PROM118S5 PO
--- NOTE | 2022-02-11 00:17 | NUR ---
PT TO BED #12
[2022-02-11 00:34] LABS: APPEARANCE,URINE CLEAR (CLEAR); BILIRUBIN,URINE NEGATIVE (NEGATIVE); BLOOD, URINE NEGATIVE (NEGATIVE); COLOR,URINE YELLOW (YELLOW); LEUKOCYTE ESTERASE ,URINE NEGATIVE (NEGATIVE); NITRITE, URINE NEGATIVE (NEGATIVE); UGLUCOSE NEGATIVE (NEGATIVE)
[2022-02-11] MEDS ORDERED: KETOROLAC 30 MG/ML VIAL IM ONE (00:45)
[2022-02-11] MEDS ORDERED: PYR100 PO (01:24)
[2022-02-11] MEDS ORDERED: CEPH-588 PO (01:24)
--- NOTE | 2022-02-11 01:56 | NUR ---
Patient discharged with v/s stable. Written and verbal after care instructions given and explained. Patient alert, oriented and verbalized understanding of instructions. Ambulatory with steady gait. All questions addressed prior to discharge. ID band removed. Patient advised to follow up with PMD. Rx of PYRIDIUM AND KEFLEX given. Patient educated on indication of medication including possible reaction and side effects. Opportunity to ask questions provided and answered.
== END 2022-02-11 01:56 | disposition home or self-care (01) ==
LOC: MED 00:07
DX: R30.0 Dysuria (principal); M54.50 Low back pain, unspecified; E11.9 Type 2 diabetes mellitus without complications; K21.9 Gastro-esophageal reflux disease without esophagitis; I10 Essential (primary) hypertension; Z79.899 Other long term (current) drug therapy; Z79.82 Long term (current) use of aspirin; Z79.84 Long term (current) use of oral hypoglycemic drugs; Z88.8 Allergy status to other drugs, medicaments and biological substances
CPT/HCPCS: 81003; 87086; 96372; 99283; J1885

== ENCOUNTER 2022-03-14 09:33 | Emergency (ER) | payer MEDICAID ==
[~2022-03-14] VITALS: Ht 160 cm; Wt 104.3 kg
[~2022-03-14 09:33] MED LIST changes: +CEPH-588 PO; +PYR100 PO
[2022-03-14 09:35] VITALS: BP 173/90
--- NOTE | 2022-03-14 09:39 | NUR ---
PT AMBULATED TO LOBBY
--- NOTE | 2022-03-14 09:45 | NUR ---
56/F WALKED IN C/O COUGH ONSET 2 MONTHS. AFEBRILE AT TRIAGE. AAO4, AMBULATORY, VITALS STABLE. PMH: HTN, DM2
--- NOTE | 2022-03-14 10:00 | NUR ---
COVID AND FLU SWAB COLLECTED
[2022-03-14] MEDS ORDERED: BENZ150C2 PO (11:13)
[2022-03-14] MEDS ORDERED: LORA10TA19 PO (11:14)
--- NOTE | 2022-03-14 11:23 | NUR ---
Patient discharged with v/s stable. Written and verbal after care instructions ABOUT COUGH given and explained. Patient alert, oriented and verbalized understanding of instructions. Ambulatory with steady gait. All questions addressed prior to discharge. ID band removed. Patient advised to follow up with PMD. Rx of BENZONATATE, CLARITIN given. Patient educated on indication of medication including possible reaction and side effects. Opportunity to ask questions provided and answered.
== END 2022-03-14 11:22 | disposition home or self-care (01) ==
LOC: MED 09:33
DX: R05.9 Cough, unspecified (principal); Z20.822 Contact with and (suspected) exposure to COVID-19; E11.9 Type 2 diabetes mellitus without complications; I10 Essential (primary) hypertension; E78.5 Hyperlipidemia, unspecified; K21.9 Gastro-esophageal reflux disease without esophagitis; I25.10 Atherosclerotic heart disease of native coronary artery without angina pectoris; Z88.8 Allergy status to other drugs, medicaments and biological substances; Z79.4 Long term (current) use of insulin; Z79.899 Other long term (current) drug therapy
CPT/HCPCS: 71045; 99284

== ENCOUNTER 2023-02-18 11:53 | Emergency (ER) | payer MEDICAID ==
[~2023-02-18] VITALS: Ht 160 cm; Wt 104.3 kg
[~2023-02-18 11:53] MED LIST changes: +BENZ150C2 PO; +LORA10TA19 PO
[2023-02-18 11:56] VITALS: BP 122/65; PULSE 90; RESP 16; TEMP 97.5; O2SAT 97
[2023-02-18 13:43] LABS: BASOPHILS % (AUTO) 0.3 % (0.0-2.0); EOSINOPHILS # (AUTO) 0.1 K/uL (0-0.4); EOSINOPHILS % (AUTO) 0.7 % (0.0-4.0); HEMATOCRIT 37.7 % (36-48); HEMOGLOBIN 12.4 g/dL (12.0-16.0); LYMPHOCYTES # (AUTO) 2.6 K/uL (2.5-16.5); LYMPHOCYTES % (AUTO) 22.2 % (20.5-51.1); MEAN CORPUSCULAR HEMOGLOBIN 29 pg (27-31); MEAN CORPUSCULAR HGB CONC 33 g/dL (33-37); MEAN CORPUSCULAR VOLUME 88.4 fL (80-94); MONOCYTES # (AUTO) 0.7 K/uL (0.8-1.0); MONOCYTES % (AUTO) 6.4 % (1.7-9.3); NEUTROPHILS # (AUTO) 8.1 K/uL (1.8-7.7); NEUTROPHILS % (AUTO) 70.4 % (42.2-75.2); PLATELET COUNT (AUTO) 290 K/uL (140-450); RED BLOOD CELL COUNT(AUTO) 4.26 MIL/uL (4.20-5.40); RED CELL DISTRIBUTION WIDTH 14.2 % (11.6-13.7); WHITE BLOOD COUNT (AUTO) 11.5 K/uL (4.8-10.8)
[2023-02-18] MEDS: NACL 0.9% 1,000 ML IV ONE (14:07)
[2023-02-18 14:12] LABS: ANION GAP 15.7 (8-16); CALCIUM 8.9 mg/dL (8.5-10.1); CARBON DIOXIDE 24.4 mmol/L (21-32); CREATININE 1.7 mg/dL (0.6-1.3); POTASSIUM 5.1 mmol/L (3.5-5.1)
[2023-02-18 15:02] LABS: BILIRUBIN,URINE NEGATIVE (NEGATIVE); BLOOD, URINE NEGATIVE (NEGATIVE); COLOR,URINE YELLOW (YELLOW); NITRITE, URINE POSITIVE (NEGATIVE); PROTEIN,URINE NEGATIVE (NEGATIVE); UGLUCOSE 3+ (NEGATIVE); UROBILINOGEN,URINE 0.2 EU/dL (0.2 - 1)
[2023-02-18 15:09] LABS: APPEARANCE,URINE SLIGHTLY HAZY (CLEAR)
[2023-02-18 15:12] LABS: BACTERIA,URINE 1+ /HPF (None Seen); LEUKOCYTE ESTERASE ,URINE 1+ (NEGATIVE); RBC,URINE 0-5 /HPF (0-5); SQUAMOUS EPITHELIAL CELL,UR 0-3 (FEW) /LPF (0-3 (FEW))
[2023-02-18 15:15] LABS: URINE AMORPHOUS URATE 1+ /HPF (None Seen)
[2023-02-18 15:48] LABS: FLU A ANTIGEN negative (NEGATIVE); FLU B ANTIGEN negative (NEGATIVE)
[2023-02-18] MEDS ORDERED: CEPH-588 PO ×2 (16:07→16:17)
== END 2023-02-18 16:27 | disposition home or self-care (01) ==
LOC: MED 11:53
DX: N17.9 Acute kidney failure, unspecified (principal); E86.0 Dehydration; N39.0 Urinary tract infection, site not specified; Z20.822 Contact with and (suspected) exposure to COVID-19; E11.9 Type 2 diabetes mellitus without complications; K21.9 Gastro-esophageal reflux disease without esophagitis; I10 Essential (primary) hypertension; E78.5 Hyperlipidemia, unspecified; Z79.899 Other long term (current) drug therapy; Z79.1 Long term (current) use of non-steroidal anti-inflammatories (NSAID); Z79.82 Long term (current) use of aspirin; Z79.2 Long term (current) use of antibiotics; Z88.1 Allergy status to other antibiotic agents
CPT/HCPCS: 36415; 80048; 81001; 82948; 84484; 85025; 87086; 87426; 87804; 93005; 96360; 99284; J7030

== ENCOUNTER 2023-02-21 18:52 | Emergency (ER) | payer MEDICAID ==
[~2023-02-21] VITALS: Ht 160 cm; Wt 103.5 kg
[2023-02-21 19:03] VITALS: BP 125/63; PULSE 104; RESP 20; TEMP 97.7; O2SAT 97
[2023-02-21] MEDS ORDERED: diazePAM 5 MG TAB PO ONE (19:25)
[2023-02-21 19:56] LABS: BASOPHILS % (AUTO) 0.2 % (0.0-2.0); EOSINOPHILS # (AUTO) 0.2 K/uL (0-0.4); EOSINOPHILS % (AUTO) 1.9 % (0.0-4.0); HEMATOCRIT 37.8 % (36-48); HEMOGLOBIN 12.4 g/dL (12.0-16.0); LYMPHOCYTES # (AUTO) 3.2 K/uL (2.5-16.5); LYMPHOCYTES % (AUTO) 28.3 % (20.5-51.1); MEAN CORPUSCULAR HEMOGLOBIN 29 pg (27-31); MEAN CORPUSCULAR HGB CONC 33 g/dL (33-37); MEAN CORPUSCULAR VOLUME 88.8 fL (80-94); MONOCYTES # (AUTO) 0.8 K/uL (0.8-1.0); MONOCYTES % (AUTO) 7.1 % (1.7-9.3); NEUTROPHILS # (AUTO) 7.1 K/uL (1.8-7.7); NEUTROPHILS % (AUTO) 62.5 % (42.2-75.2); PLATELET COUNT (AUTO) 303 K/uL (140-450); RED BLOOD CELL COUNT(AUTO) 4.25 MIL/uL (4.20-5.40); WHITE BLOOD COUNT (AUTO) 11.4 K/uL (4.8-10.8)
[2023-02-21 20:17] LABS: ALBUMIN 3.5 g/dL (3.4-5.0); ANION GAP 14.8 (8-16); CALCIUM 8.9 mg/dL (8.5-10.1); CARBON DIOXIDE 23.8 mmol/L (21-32); CREATININE 1.5 mg/dL (0.6-1.3); POTASSIUM 4.6 mmol/L (3.5-5.1); TOTAL BILIRUBIN 0.2 mg/dL (0.0-1.0); TOTAL PROTEIN, SERUM 7.9 g/dL (6.4-8.2)
[2023-02-21] MEDS ORDERED: ATI.5 PO (21:04)
[2023-02-21] MEDS ORDERED: diazePAM 5 MG TAB ONE (21:16)
[2023-02-21 21:43] LABS: CALCIUM 9.1 mg/dL (8.5-10.1); CARBON DIOXIDE 23.5 mmol/L (21-32); CREATININE 1.6 mg/dL (0.6-1.3); POTASSIUM 4.5 mmol/L (3.5-5.1)
[2023-02-21 22:20] VITALS: BP 125/63; PULSE 104; RESP 20; TEMP 97.7; O2SAT 97
== END 2023-02-21 22:20 | disposition home or self-care (01) ==
LOC: MED 18:52
DX: R53.1 Weakness (principal); F41.9 Anxiety disorder, unspecified; E11.65 Type 2 diabetes mellitus with hyperglycemia; I11.9 Hypertensive heart disease without heart failure; K21.9 Gastro-esophageal reflux disease without esophagitis; Z79.4 Long term (current) use of insulin; Z79.899 Other long term (current) drug therapy
CPT/HCPCS: 36415; 71045; 80048; 80053; 83690; 84484; 85025; 93005; 99285

== ENCOUNTER 2023-02-28 17:35 | Emergency (ER) | payer MEDICAID ==
[~2023-02-28] VITALS: Ht 165.1 cm; Wt 81.6 kg
[~2023-02-28 17:35] MED LIST changes: +ATI.5 PO
[2023-02-28 18:09] VITALS: BP 158/87; PULSE 93; RESP 18; TEMP 98.4; O2SAT 98
[2023-02-28] MEDS ORDERED: PROCHLORPERAZINE 10 MG/2 ML VIAL IVP ONE (19:35)
[2023-02-28] MEDS ORDERED: diphenhydrAMINE 50 MG/ML VIAL IVP ONE (19:35)
[2023-02-28 20:29] LABS: BASOPHILS % (AUTO) 0.4 % (0.0-2.0); EOSINOPHILS # (AUTO) 0.2 K/uL (0-0.4); EOSINOPHILS % (AUTO) 1.5 % (0.0-4.0); HEMATOCRIT 38.8 % (36-48); HEMOGLOBIN 12.9 g/dL (12.0-16.0); LYMPHOCYTES # (AUTO) 3.7 K/uL (2.5-16.5); MEAN CORPUSCULAR HEMOGLOBIN 29 pg (27-31); MEAN CORPUSCULAR HGB CONC 33 g/dL (33-37); MONOCYTES # (AUTO) 0.9 K/uL (0.8-1.0); MONOCYTES % (AUTO) 6.7 % (1.7-9.3); NEUTROPHILS # (AUTO) 8.4 K/uL (1.8-7.7); NEUTROPHILS % (AUTO) 63.4 % (42.2-75.2); PLATELET COUNT (AUTO) 335 K/uL (140-450); RED BLOOD CELL COUNT(AUTO) 4.41 MIL/uL (4.20-5.40); RED CELL DISTRIBUTION WIDTH 14.3 % (11.6-13.7); WHITE BLOOD COUNT (AUTO) 13.2 K/uL (4.8-10.8)
[2023-02-28 20:49] LABS: ANION GAP 14.1 (8-16); CALCIUM 9.2 mg/dL (8.5-10.1); CARBON DIOXIDE 24.4 mmol/L (21-32); CREATININE 1.3 mg/dL (0.6-1.3); POTASSIUM 4.5 mmol/L (3.5-5.1)
[2023-02-28 20:56] LABS: ALANINE AMINOTRANSFERASE 19 U/L (12-78); ALBUMIN 3.4 g/dL (3.4-5.0); ALKALINE PHOSPHATASE 120 U/L (50-136); ASPARTATE AMINOTRANSFERASE 18 U/L (15-37); TOTAL BILIRUBIN 0.2 mg/dL (0.0-1.0)
[2023-02-28 21:19] VITALS: BP 151/84; PULSE 85; RESP 20; O2SAT 99
== END 2023-02-28 21:19 | disposition home or self-care (01) ==
LOC: MED 17:35
DX: R51.9 Headache, unspecified (principal); I11.9 Hypertensive heart disease without heart failure; E11.9 Type 2 diabetes mellitus without complications; K21.9 Gastro-esophageal reflux disease without esophagitis; Z79.899 Other long term (current) drug therapy; Z79.4 Long term (current) use of insulin
CPT/HCPCS: 36415; 71045; 80048; 80076; 84484; 85025; 93005; 96374; 96375; 99285; J0780; J1200

== ENCOUNTER 2023-03-29 10:40 | Emergency (ER) | payer MEDICAID ==
[~2023-03-29] VITALS: Ht 160 cm; Wt 104.3 kg
[2023-03-29 10:42] VITALS: BP 193/90; PULSE 95; RESP 20; TEMP 97; O2SAT 99
[2023-03-29 12:15] LABS: APPEARANCE,URINE CLEAR (CLEAR); BILIRUBIN,URINE NEGATIVE (NEGATIVE); BLOOD, URINE NEGATIVE (NEGATIVE); COLOR,URINE YELLOW (YELLOW); LEUKOCYTE ESTERASE ,URINE NEGATIVE (NEGATIVE); NITRITE, URINE NEGATIVE (NEGATIVE); PH,URINE 6.5 (5.0-9.0); PROTEIN,URINE TRACE (NEGATIVE); UGLUCOSE 1+ (NEGATIVE); UROBILINOGEN,URINE 0.2 EU/dL (0.2 - 1)
[2023-03-29 12:16] LABS: BASOPHILS % (AUTO) 0.3 % (0.0-2.0); EOSINOPHILS # (AUTO) 0.1 K/uL (0-0.4); EOSINOPHILS % (AUTO) 0.8 % (0.0-4.0); HEMATOCRIT 38.3 % (36-48); HEMOGLOBIN 12.7 g/dL (12.0-16.0); LYMPHOCYTES # (AUTO) 2.2 K/uL (2.5-16.5); LYMPHOCYTES % (AUTO) 17.8 % (20.5-51.1); MEAN CORPUSCULAR HEMOGLOBIN 29 pg (27-31); MEAN CORPUSCULAR HGB CONC 33 g/dL (33-37); MEAN CORPUSCULAR VOLUME 88.1 fL (80-94); MONOCYTES # (AUTO) 0.7 K/uL (0.8-1.0); MONOCYTES % (AUTO) 5.6 % (1.7-9.3); NEUTROPHILS # (AUTO) 9.5 K/uL (1.8-7.7); NEUTROPHILS % (AUTO) 75.5 % (42.2-75.2); PLATELET COUNT (AUTO) 317 K/uL (140-450); RED BLOOD CELL COUNT(AUTO) 4.34 MIL/uL (4.20-5.40); RED CELL DISTRIBUTION WIDTH 14.4 % (11.6-13.7); WHITE BLOOD COUNT (AUTO) 12.6 K/uL (4.8-10.8)
[2023-03-29 12:37] LABS: CALCIUM 9.1 mg/dL (8.5-10.1); CARBON DIOXIDE 26.2 mmol/L (21-32); CREATININE 1.1 mg/dL (0.6-1.3); POTASSIUM 5.2 mmol/L (3.5-5.1)
[2023-03-29 12:41] LABS: ALANINE AMINOTRANSFERASE 19 U/L (12-78); ALBUMIN 3.2 g/dL (3.4-5.0); ALKALINE PHOSPHATASE 129 U/L (50-136); ASPARTATE AMINOTRANSFERASE 16 U/L (15-37); BILIRUBIN,DIRECT 0.1 mg/dL (0.0-0.3); THYROID STIMULATING HORMONE 1.13 uIU/mL (0.34-3.74); TOTAL BILIRUBIN 0.3 mg/dL (0.0-1.0); TOTAL PROTEIN, SERUM 8.6 g/dL (6.4-8.2)
[2023-03-29] MEDS ORDERED: ATA25 PO (14:06)
[2023-03-29 14:32] VITALS: BP 115/68; PULSE 87; RESP 20; TEMP 97; O2SAT 96
== END 2023-03-29 14:32 | disposition home or self-care (01) ==
LOC: MED 10:40
DX: R42 Dizziness and giddiness (principal); F41.9 Anxiety disorder, unspecified; E87.5 Hyperkalemia; I12.9 Hypertensive chronic kidney disease with stage 1 through stage 4 chronic kidney disease, or unspecified chronic kidney disease; E11.22 Type 2 diabetes mellitus with diabetic chronic kidney disease; N18.9 Chronic kidney disease, unspecified; K21.9 Gastro-esophageal reflux disease without esophagitis; Z79.4 Long term (current) use of insulin; Z79.899 Other long term (current) drug therapy
CPT/HCPCS: 36415; 71045; 80048; 80076; 81003; 81025; 84443; 84484; 85025; 93005; 99285; Q0092

== ENCOUNTER 2023-04-30 11:30 | Emergency (ER) | payer MEDICAID ==
[~2023-04-30] VITALS: Ht 160 cm; Wt 101.6 kg
[~2023-04-30 11:30] MED LIST changes: +ATA25 PO
[2023-04-30 11:39] VITALS: BP 141/71; PULSE 89; RESP 20; TEMP 97.4; O2SAT 97
[2023-04-30 14:35] VITALS: BP 106/56; PULSE 79; RESP 19; O2SAT 99
== END 2023-04-30 14:36 | disposition home or self-care (01) ==
LOC: MED 11:30
DX: R42 Dizziness and giddiness (principal); I12.9 Hypertensive chronic kidney disease with stage 1 through stage 4 chronic kidney disease, or unspecified chronic kidney disease; E11.22 Type 2 diabetes mellitus with diabetic chronic kidney disease; N28.9 Disorder of kidney and ureter, unspecified; K21.9 Gastro-esophageal reflux disease without esophagitis; Z79.4 Long term (current) use of insulin; Z79.899 Other long term (current) drug therapy; Z88.8 Allergy status to other drugs, medicaments and biological substances
CPT/HCPCS: 70450; 82948; 99284

== ENCOUNTER 2023-08-20 04:10 | Emergency (ER) | payer MEDICAID ==
[~2023-08-20] VITALS: Ht 160 cm; Wt 104.3 kg
[~2023-08-20 04:10] MED LIST changes: -BENZ150C2 PO; +BENZ150C7 PO; +NAPR-337 PO; -NAPR-54 PO
[2023-08-20 04:16] VITALS: BP 175/82; PULSE 82; RESP 18; TEMP 98; O2SAT 98
[2023-08-20 04:56] LABS: APPEARANCE,URINE CLEAR (CLEAR); BILIRUBIN,URINE NEGATIVE (NEGATIVE); BLOOD, URINE NEGATIVE (NEGATIVE); COLOR,URINE YELLOW (YELLOW); LEUKOCYTE ESTERASE ,URINE TRACE (NEGATIVE); NITRITE, URINE POSITIVE (NEGATIVE); PROTEIN,URINE 1+ (NEGATIVE); UGLUCOSE TRACE (NEGATIVE)
[2023-08-20 05:02] LABS: BACTERIA,URINE 10-30 (MOD) /HPF (None Seen); MUCUS,URINE 1+ /LPF (None Seen); RBC,URINE 0-5 /HPF (0-5); SQUAMOUS EPITHELIAL CELL,UR 0-3 (FEW) /LPF (0-3 (FEW))
[2023-08-20] MEDS: KETOROLAC 60 MG/2 ML VIAL IM ONE (05:27)
[2023-08-20] MEDS ORDERED: LIDOCAINE MPF 1% 5 ML ONE (06:10)
[2023-08-20] MEDS ORDERED: cefTRIAXone 1,000 MG VIAL ONE (06:10)
[2023-08-20] MEDS: cefTRIAXone 1,000 MG in LIDOCAINE MPF 1% 2.1 ML IM ONE (06:12)
[2023-08-20] MEDS ORDERED: CEPH-588 PO (06:18)
[2023-08-20] MEDS ORDERED: MELO-176 PO (06:18)
[2023-08-20 06:29] VITALS: BP 156/82; PULSE 82; RESP 18; TEMP 98; O2SAT 98
== END 2023-08-20 06:29 | disposition home or self-care (01) ==
LOC: MED 04:10
DX: N39.0 Urinary tract infection, site not specified (principal); M54.50 Low back pain, unspecified; E11.9 Type 2 diabetes mellitus without complications; K21.9 Gastro-esophageal reflux disease without esophagitis; I10 Essential (primary) hypertension; Z79.82 Long term (current) use of aspirin; Z79.84 Long term (current) use of oral hypoglycemic drugs; Z79.1 Long term (current) use of non-steroidal anti-inflammatories (NSAID); Z79.2 Long term (current) use of antibiotics; Z79.899 Other long term (current) drug therapy; Z88.1 Allergy status to other antibiotic agents
CPT/HCPCS: 81001; 87086; 96372; 99284; J0696; J1885; J2001

== ENCOUNTER 2023-08-24 15:00 | Emergency (ER) | payer MEDICAID ==
[~2023-08-24] VITALS: Ht 160 cm; Wt 105.2 kg
[~2023-08-24 15:00] MED LIST changes: +MELO-176 PO
[2023-08-24 15:12] VITALS: BP 176/68; PULSE 89; RESP 16; TEMP 98.3; O2SAT 98
[2023-08-24 15:44] LABS: BASOPHILS % (AUTO) 0.3 % (0.0-2.0); EOSINOPHILS # (AUTO) 0.2 K/uL (0-0.4); EOSINOPHILS % (AUTO) 1.5 % (0.0-4.0); HEMATOCRIT 35.6 % (36-48); HEMOGLOBIN 11.7 g/dL (12.0-16.0); LYMPHOCYTES # (AUTO) 2.7 K/uL (2.5-16.5); LYMPHOCYTES % (AUTO) 22.4 % (20.5-51.1); MEAN CORPUSCULAR HEMOGLOBIN 29 pg (27-31); MEAN CORPUSCULAR HGB CONC 33 g/dL (33-37); MEAN CORPUSCULAR VOLUME 87.4 fL (80-94); MONOCYTES # (AUTO) 0.9 K/uL (0.8-1.0); MONOCYTES % (AUTO) 7.1 % (1.7-9.3); NEUTROPHILS # (AUTO) 8.3 K/uL (1.8-7.7); NEUTROPHILS % (AUTO) 68.7 % (42.2-75.2); PLATELET COUNT (AUTO) 302 K/uL (140-450); RED BLOOD CELL COUNT(AUTO) 4.07 MIL/uL (4.20-5.40); RED CELL DISTRIBUTION WIDTH 13.8 % (11.6-13.7); WHITE BLOOD COUNT (AUTO) 12.1 K/uL (4.8-10.8)
[2023-08-24 16:00] LABS: ANION GAP 13.6 (8-16); CALCIUM 8.6 mg/dL (8.5-10.1); CARBON DIOXIDE 24.4 mmol/L (21-32); CREATININE 1.3 mg/dL (0.6-1.3)
[2023-08-24 16:19] LABS: APPEARANCE,URINE CLEAR (CLEAR); BILIRUBIN,URINE NEGATIVE (NEGATIVE); BLOOD, URINE NEGATIVE (NEGATIVE); COLOR,URINE YELLOW (YELLOW); LEUKOCYTE ESTERASE ,URINE NEGATIVE (NEGATIVE); NITRITE, URINE NEGATIVE (NEGATIVE); PROTEIN,URINE NEGATIVE (NEGATIVE); UGLUCOSE NEGATIVE (NEGATIVE); UROBILINOGEN,URINE 0.2 EU/dL (0.2 - 1)
[2023-08-24 17:30] VITALS: BP 153/80; PULSE 80; RESP 16; TEMP 98; O2SAT 100
== END 2023-08-24 17:20 | disposition home or self-care (01) ==
LOC: MED 15:00
DX: R60.0 Localized edema (principal); R30.0 Dysuria; E11.9 Type 2 diabetes mellitus without complications; K21.9 Gastro-esophageal reflux disease without esophagitis; I10 Essential (primary) hypertension; Z87.448 Personal history of other diseases of urinary system; Z98.890 Other specified postprocedural states; Z79.899 Other long term (current) drug therapy; Z79.82 Long term (current) use of aspirin; Z88.1 Allergy status to other antibiotic agents
CPT/HCPCS: 36415; 71045; 80048; 81003; 83880; 84484; 85025; 93970; 99285; Q0092

== ENCOUNTER 2023-10-01 16:26 | Emergency (ER) | payer MEDICAID ==
[~2023-10-01] VITALS: Ht 160 cm; Wt 104.3 kg
[2023-10-01 16:52] VITALS: BP 162/80; RESP 20; TEMP 97.5; O2SAT 99
[2023-10-01 18:03] VITALS: BP 162/80; RESP 20; TEMP 97.5; O2SAT 99
[2023-10-01 18:27] LABS: APPEARANCE,URINE SLIGHTLY CLOUDY (CLEAR); BILIRUBIN,URINE 1+ (NEGATIVE); BLOOD, URINE NEGATIVE (NEGATIVE); COLOR,URINE YELLOW (YELLOW); LEUKOCYTE ESTERASE ,URINE 1+ (NEGATIVE); NITRITE, URINE NEGATIVE (NEGATIVE); PROTEIN,URINE TRACE (NEGATIVE); UGLUCOSE NEGATIVE (NEGATIVE); UROBILINOGEN,URINE 0.2 EU/dL (0.2 - 1)
[2023-10-01] MEDS ORDERED: KETOROLAC 30 MG/ML VIAL ONE (18:29)
[2023-10-01 18:30] LABS: BACTERIA,URINE 2+ /HPF (None Seen); ICTOTEST POSITIVE (NEGATIVE); RBC,URINE 0 /HPF (0-5); SQUAMOUS EPITHELIAL CELL,UR 4-10 (MOD) /LPF (0-3 (FEW)); WBC,URINE 0-5 /HPF (0-5)
[2023-10-01 18:31] LABS: MUCUS,URINE None Seen /LPF (None Seen)
[2023-10-01] MEDS: KETOROLAC 30 MG/ML VIAL IM ONE (18:34)
[2023-10-01] MEDS ORDERED: cefTRIAXone 250 MG VIAL ONE (18:53)
[2023-10-01] MEDS ORDERED: CEFP100T18 PO (18:53)
[2023-10-01] MEDS ORDERED: LIDOCAINE MPF 1% 5 ML ONE (18:54)
[2023-10-01] MEDS ORDERED: NAPR-1704 PO (19:04)
[2023-10-01] MEDS: cefTRIAXone 500 MG in LIDOCAINE MPF 1% 1 ML IM ONE (19:10)
== END 2023-10-01 19:30 | disposition home or self-care (01) ==
LOC: MED 16:26
DX: N39.0 Urinary tract infection, site not specified (principal); Z11.3 Encounter for screening for infections with a predominantly sexual mode of transmission; E11.9 Type 2 diabetes mellitus without complications; K21.9 Gastro-esophageal reflux disease without esophagitis; I10 Essential (primary) hypertension; Z87.448 Personal history of other diseases of urinary system; Z90.710 Acquired absence of both cervix and uterus; E78.5 Hyperlipidemia, unspecified; Z98.890 Other specified postprocedural states; Z79.899 Other long term (current) drug therapy; Z79.82 Long term (current) use of aspirin; Z88.1 Allergy status to other antibiotic agents
CPT/HCPCS: 81001; 87086; 87491; 96372; 99284; J0696; J1885; J2001

== ENCOUNTER 2023-10-27 09:34 | Emergency (ER) | payer MEDICAID ==
[~2023-10-27] VITALS: Ht 160 cm; Wt 97.5 kg
[~2023-10-27 09:34] MED LIST changes: +CEFP100T18 PO; +NAPR-1704 PO
[2023-10-27 09:42] VITALS: BP 151/76; PULSE 87; RESP 18; TEMP 97.9; O2SAT 98
[2023-10-27 10:00] LABS: APPEARANCE,URINE CLEAR (CLEAR); BILIRUBIN,URINE NEGATIVE (NEGATIVE); BLOOD, URINE NEGATIVE (NEGATIVE); COLOR,URINE YELLOW (YELLOW); LEUKOCYTE ESTERASE ,URINE NEGATIVE (NEGATIVE); NITRITE, URINE NEGATIVE (NEGATIVE); PH,URINE 6.5 (5.0-9.0); PROTEIN,URINE NEGATIVE (NEGATIVE); UGLUCOSE NEGATIVE (NEGATIVE); UROBILINOGEN,URINE 0.2 EU/dL (0.2 - 1)
--- NOTE | 2023-10-27 10:02 | NUR ---
57 Y/O FEMALE PT. PRESENT TO THE ED C/O DYSURIA. BURNING URINATION. DENIES FEVER OR CHILLS. URINE SPECIMEN COLLECTED AND SENT TO MAIN LAB. PLAN OF CARE ONGOING.
--- NOTE | 2023-10-27 10:51 | NUR ---
[place] PELVIC EXAM DONE AT BED SIDE BY DELIA GUERRERO. SPECIMEN COLLECTED AND SENT TO MAIN LAB.
[2023-10-27] MEDS ORDERED: KETOROLAC 30 MG/ML VIAL ONE (11:26)
[2023-10-27] MEDS: KETOROLAC 30 MG/ML VIAL IM ONE (11:27)
[2023-10-27] MEDS ORDERED: NAPR-1704 PO (12:29)
[2023-10-27 12:47] VITALS: BP 151/76; PULSE 87; RESP 18; TEMP 97.9; O2SAT 98
== END 2023-10-27 12:48 | disposition home or self-care (01) ==
LOC: MED 09:34
DX: R30.0 Dysuria (principal); E11.9 Type 2 diabetes mellitus without complications; K21.9 Gastro-esophageal reflux disease without esophagitis; I10 Essential (primary) hypertension; Z87.448 Personal history of other diseases of urinary system; E78.5 Hyperlipidemia, unspecified; Z79.899 Other long term (current) drug therapy; Z79.82 Long term (current) use of aspirin; Z88.1 Allergy status to other antibiotic agents
CPT/HCPCS: 81003; 87210; 96372; 99284; J1885; 99283

== ENCOUNTER 2023-12-11 18:36 | Emergency (ER) | payer MEDICAID ==
[~2023-12-11] VITALS: Ht 160 cm; Wt 104.3 kg
[2023-12-11 18:47] VITALS: BP 191/86; PULSE 94; RESP 16; TEMP 98.3; O2SAT 98
[2023-12-11 19:15] LABS: BASOPHILS % (AUTO) 0.1 % (0.0-2.0); EOSINOPHILS # (AUTO) 0.2 K/uL (0-0.4); EOSINOPHILS % (AUTO) 1.6 % (0.0-4.0); HEMATOCRIT 37.8 % (36-48); HEMOGLOBIN 12.6 g/dL (12.0-16.0); LYMPHOCYTES # (AUTO) 2.9 K/uL (2.5-16.5); LYMPHOCYTES % (AUTO) 26.8 % (20.5-51.1); MEAN CORPUSCULAR HEMOGLOBIN 29 pg (27-31); MEAN CORPUSCULAR HGB CONC 33 g/dL (33-37); MEAN CORPUSCULAR VOLUME 86.2 fL (80-94); MONOCYTES # (AUTO) 0.7 K/uL (0.8-1.0); MONOCYTES % (AUTO) 6.8 % (1.7-9.3); NEUTROPHILS # (AUTO) 6.9 K/uL (1.8-7.7); NEUTROPHILS % (AUTO) 64.7 % (42.2-75.2); PLATELET COUNT (AUTO) 292 K/uL (140-450); RED BLOOD CELL COUNT(AUTO) 4.39 MIL/uL (4.20-5.40); RED CELL DISTRIBUTION WIDTH 13.9 % (11.6-13.7); WHITE BLOOD COUNT (AUTO) 10.7 K/uL (4.8-10.8)
[2023-12-11 19:30] LABS: ANION GAP 11.4 (8-16); CALCIUM 8.6 mg/dL (8.5-10.1); CARBON DIOXIDE 27.3 mmol/L (21-32); CREATININE 1.2 mg/dL (0.6-1.3); POTASSIUM 4.7 mmol/L (3.5-5.1)
[2023-12-11 19:45] LABS: APPEARANCE,URINE CLEAR (CLEAR); BILIRUBIN,URINE NEGATIVE (NEGATIVE); BLOOD, URINE NEGATIVE (NEGATIVE); COLOR,URINE YELLOW (YELLOW); LEUKOCYTE ESTERASE ,URINE NEGATIVE (NEGATIVE); NITRITE, URINE NEGATIVE (NEGATIVE); PH,URINE 6.5 (5.0-9.0); PROTEIN,URINE NEGATIVE (NEGATIVE); UGLUCOSE NEGATIVE (NEGATIVE); UROBILINOGEN,URINE 0.2 EU/dL (0.2 - 1)
[2023-12-11 19:48] VITALS: BP 186/84; PULSE 98; RESP 18; O2SAT 97
[2023-12-11 19:52] LABS: INR 0.99 (0.8-1.2); PARTIAL THROMBOPLASTIN TIME 25.9 secs (22-35.6); PROTHROMBIN TIME 10.4 secs (10.8-13.4)
[2023-12-11] MEDS ORDERED: MECL-303 PO (21:56)
== END 2023-12-11 22:04 | disposition home or self-care (01) ==
LOC: MED 18:36
DX: R42 Dizziness and giddiness (principal); R20.0 Anesthesia of skin; R20.2 Paresthesia of skin; E11.9 Type 2 diabetes mellitus without complications; I10 Essential (primary) hypertension; E78.5 Hyperlipidemia, unspecified; Z79.899 Other long term (current) drug therapy; Z79.82 Long term (current) use of aspirin; Z88.1 Allergy status to other antibiotic agents
CPT/HCPCS: 36415; 70450; 71045; 80048; 81003; 82948; 84484; 85025; 85610; 85730; 93005; 99285; Q0092